=== PATIENT | male | born 1960 ===

== ENCOUNTER 2016-06-25 06:39 | Inpatient (IN) ==
[~2016-06-25 06:39] MED LIST: ASPIRIN 325 MG TABLET PO ONE; DIAZEPAM 5 MG TABLET PO ONE; diphenhydrAMINE CAP 25 MG CAPSULE PO ONE
--- NOTE | 2016-06-25 07:33 | History and Physical Update ---
Sedation H&P Update - History and Physical H&P was reviewed, the patient examined and there: are no changes in the patients condition since last H&P was completed. - Dictation Physical: refer to H&P completed by admitting physician - Physical Exam Mental Status: alert and oriented Heart: regular rate and rhythm Lung: clear to auscultation Abdomen: within normal limits Vitals: within normal limits - Sedation Plan for Sedation: moderate Patient Consent: Procedure disscussed with patient and patinet has consented., Risks and benefits were discussed with patient,including infection,, bleeding, injury to surrounding structures, seizure, temporary nerve, Patient understands and accepts potential risks/benefits and agrees to, proceed. ASA Class: III Airway Assessment: Class II: Soft palate, uvula, fauces visible
--- NOTE | 2016-06-25 07:35 | EKG Report ---
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
--- NOTE | 2016-06-25 07:50 | XRay Report ---
Portable chest Date: 06/25/2016 Clinical history: Chest pain Comparison: None Technique: Portable AP sitting chest Findings: The heart is normal in size. Calcified granulomata/nodes. Minimal atelectasis at the left lung base. Probable nipple shadow at the left lung base. Unremarkable mediastinum with degenerative changes. Impression: Old healed granulomatous disease with minimal atelectasis at the left lung base. Probably nipple shadow in the left lower lung zone which could be confirmed with PA film with nipple markers. PROCEDURE INTERPRETED AT [facility] DEPARTMENT OF RADIOLOGY Final Report Signed by: Dr. Adalgisa Isbell
[2016-06-25] MEDS ORDERED: ASPIRIN 325 MG TABLET ONE (07:58)
[2016-06-25] MEDS ORDERED: diphenhydrAMINE CAP 25 MG CAPSULE ONE (07:58)
[2016-06-25] MEDS ORDERED: NITROGLYCERIN DRIP 50 MG/250 ML BOTTLE IV ONE (08:03)
[2016-06-25] MEDS ORDERED: VERAPAMIL 5 MG/2 ML VIAL ONE (08:03)
[2016-06-25] MEDS ORDERED: HEPARIN/NACL 0.9% 2 UNITS/ML 1,000 ML IV ONE (08:03)
[2016-06-25] MEDS ORDERED: LIDOCAINE 1% 20 ML VIAL ONE (08:03)
[2016-06-25] MEDS: SODIUM CHLORIDE 0.45% 1,000 ML IV SCH ×2 (08:03→18:28)
--- NOTE | 2016-06-25 08:08 | Cardiology History & Physical ---
Assessment and Plan - Time spent with patient Time spent with patient: Less than 30 minutes (1) Unstable angina Status: Acute Current Visit: Yes (2) Hypertension Status: Chronic Current Visit: Yes Qualifiers: Hypertension type: essential hypertension Qualified Code(s): I10 - Essential (primary) hypertension (3) Diabetes Status: Chronic Current Visit: Yes Qualifiers: Diabetes mellitus type: type 2 Diabetes mellitus complication status: without complication (4) Abnormal cardiovascular stress test Status: Acute Current Visit: Yes (5) Dyslipidemia Status: Chronic Current Visit: Yes History of Present Illness Chief complaint: Chest discomfort History of present illness: Mr. Peraza is a 56 year old male hypertensive diabetic who has experienced chest discomfort that he is felt to be has gallstones. He has a history of cholelithiasis and has had chest discomfort in the epigastrium that appears to be related to exertion and other times at random. He is followed by Dr. Leatha Vargas in the outpatient setting I saw the patient in the clinic with Dr. Vargas earlier this week. I saw and examined the patient that time discussed with him all risk benefits and options of left heart catheterization following a high risk nuclear stress test. He had a Krueger treadmill score of -[address] segment changes chest discomfort and a large inferior reversible defect as interpreted by Dr. Vargas. He also had labs that I have reviewed with a creatinine of 1.4 and a stable CBC. Patient was evaluated in the recovery room this morning before his left heart catheterization. I discussed again with the patient briefly and answered the questions that he and his had. He is agreeable to proceed he has anatomy that appears to be amenable for right radial artery access. I have reviewed his chart. Home Medications Medication Instructions Recorded Confirmed Type Aspirin EC Tab 81 mg PO DAILY 06/25/16 06/25/16 History Carvedilol [Coreg] 6.25 mg PO BID 06/25/16 06/25/16 History Nitroglycerin Sl Tab [Nitrostat] 0.4 mg SL Q5M PRN 06/25/16 06/25/16 History Saxagliptin HCl [Onglyza] 5 mg PO DAILY 06/25/16 06/25/16 History Ursodiol [Actigall] 300 mg PO BID 06/25/16 06/25/16 History metFORMIN [Glucophage] 500 mg PO BID W/MEALS 06/25/16 06/25/16 History Allergies Allergy/AdvReac Type Severity Reaction Status Date / Time No Known Allergies Allergy Verified 06/25/16 07:13 - Constitutional Constitutional: Absent: anorexia - EENT Eyes: Absent: diplopia Nose, mouth and throat: Absent: dysphagia - Cardiovascular Cardiovascular: Present: chest pain at rest, chest pain with activity, dyspnea - Respiratory Respiratory: Present: dyspnea, dyspnea on exertion - Gastrointestinal Gastrointestinal: Present: other (Epigastric discomfort) - Genitourinary Genitourinary: Absent: difficulty urinating - Musculoskeletal Musculoskeletal: Absent: arthralgias - Neurological Neurological: Absent: abnormal gait - Psychiatric Psychiatric: Absent: anxiety, depression - Endocrine Endocrine: Absent: cold intolerance, heat intolerance - Hematologic/Lymphatic Hematologic/Lymphatic: Absent: easy bleeding, easy bruising Medical,Surgical,& Family Hx - Medical History Cardio: History of: Hypertension Neurology: No history of: Seizures Endocrine: History of: Diabetes Mellitus (NIDDM) Gastrointestinal: History of: GI Problems (Hx lesions in his liver that had been cleared by CT and cholelithiasis) - Surgical History Additional Surgical History: T&A - Social History Smoking Status: Never smoker Frequency of Alcohol Use: None Type of Drug Use: None Marital Status: Lives With:: Spouse Functional capacity: independent 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 (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) Cardiology Physical Exam - Constitutional Vitals: Vital Signs Temp Pulse Resp BP Pulse Ox 97.6 F 66 14 179/84 99 06/25/16 07:22 06/25/16 07:22 06/25/16 07:22 06/25/16 07:22 06/25/16 07:22 Intake and Output 06/24/16 06/25/16 06/25/16 23:59 07:59 15:59 Other: Weight 100.471 kg Patient Weight 06/25/16 23:59 Weight 100.471 kg General appearance: normal weight - Head Head exam: Present: normal inspection - Eye Eye exam: Present: EOMI Pupils: Present: ANNA - ENT ENT exam: Present: normal exam - Neck Neck exam: Present: normal inspection - Respiratory Respiratory exam: Present: clear to auscultation bilaterally - Cardiovascular Cardiovascular exam: Present: regular rate and rhythm (S4) - GI/Abdominal GI/Abdominal exam: Present: normal bowel sounds - Extremities Exam Extremities exam: Present: normal inspection - Back Exam Back exam: Present: normal inspection - Neurological Exam Neurological exam: Present: alert, oriented X3 - Psychiatric Psychiatric exam: Present: normal affect, normal mood - Skin Skin exam: Present: normal color, warm Result/EKG - Labs Labs: Laboratory Results - last 24 hr 06/25/16 07:56 POC Glucose 164 H
[2016-06-25] MEDS ORDERED: fentaNYL 100 MCG/2 ML VIAL ONE (08:20)
[2016-06-25] MEDS ORDERED: MIDAZOLAM 2 MG/2 ML VIAL ONE (08:20)
[2016-06-25] MEDS ORDERED: ENOXAPARIN 60 MG/0.6 ML SYRINGE ONE (08:29)
[2016-06-25] MEDS ORDERED: ONDANSETRON 4 MG/2 ML VIAL IV PRN (08:48)
[2016-06-25] MEDS ORDERED: DEXTROSE 50% 25 GM/50 ML VIAL IV PRN ×2 (08:48→08:53)
[2016-06-25] MEDS ORDERED: GLUCAGON 1 MG VIAL IM PRN ×2 (08:48→08:53)
[2016-06-25] MEDS ORDERED: ZALEPLON 5 MG CAPSULE PO PRN (08:48)
[2016-06-25] MEDS ORDERED: NITROGLYCERIN SL 0.4 MG TABLET SL PRN ×2 (08:48→08:52)
[2016-06-25] MEDS ORDERED: hydrALAZINE 20 MG/1 ML VIAL IV PRN (08:48)
[2016-06-25] MEDS ORDERED: ACETAMINOPHEN 325 MG TABLET PO PRN (08:48)
[2016-06-25] MEDS ORDERED: ASPIRIN EC 81 MG TABLET PO SCH (09:00)
--- NOTE | 2016-06-25 09:04 | Cardiac Catheterization ---
Date of Procedure:: 06/25/16 Pre-op Diagnosis: Progressive or unstable angina with high risk nuclear stress test Post-op diagnosis: other (Severe aorto ostial disease and severe RCA stenosis) Procedure: Procedures: 1. Left heart catheterization resting hemodynamic 2. Selective left and right coronary angiography 3. Left subclavian angiography with visualization of the left internal mammary artery in situ After signed an informed consent was obtained, the patient was prepped and draped in standard fashion for right radial access. Time out was recorded. 0.5 mL of 1% lidocaine were infiltrated in the skin and subcutaneous tissue overlying the right radial artery and Seldinger technique was utilized with a Angiocath to obtain access to the right radial artery. A [place] glide wire was then advanced into the midforearm under fluoroscopic guidance. The Angiocath was removed and a 6 Vietnamese Terumo glide sheath was placed over the Glidewire. The sheath was aspirated and flushed and then 5 mg of verapamil and 200 g of nitroglycerin were given through the sheath. At this time an 035 J-wire was used to guide a [place] 6 Vietnamese catheter into the central aorta across the aortic valve and into the ventricle. Pressure measurements and pullback measurements were obtained. The [place] catheter was then used to engage the left main coronary artery and multiple orthogonal views of the left system were obtained. The catheter then was torqued into the right coronary artery and orthogonal views of the right system were obtained. The catheter was then exchanged over the wire. The sheath was aspirated and flushed. The base draw operator reviewed the films. And a TR band was placed over the glide sheath and used for hemostasis. Total contrast exposure 105 cc of omnipaque Total x-ray exposure: 3.75 min fluoroscopy time and 354 mGy air Kerma Findings: 1. EF not assessed at this time. Transthoracic echo in the computer and recent nuclear stress test with mild decline in EF with stress test but preserved ejection fraction by transthoracic echo consistent with the patient's severe left main and RCA aorto ostial disease 2. Hemodynamics LV: 97/8 EDP:9 Ao:82/31 3. Left main: The vessel demonstrates approximately 30 mmHg damping with engagement and significant change in waveform. It is very difficult to image the vessel due to blowback from the catheter with minimal injection. Vessel is diffusely diseased from the aorta ostium all the way to the bifurcation. 4: Left anterior descending artery: There is ostial involvement with the left main. The proximal portion of the vessel appears to be moderately diffusely diseased. Due to poor flow from the left main it is not very well delineated. 5: Left circumflex artery: This is large but nondominant vessel. There is high- grade ostial stenosis of the vessel at the takeoff of the left main. There is also high-grade ostial stenosis of a large first obtuse marginal that ask almost like a ramus intermedius that is back to the left main with stenosis. There is a 100% occluded ghost filling second obtuse marginal as well. 6: Right coronary artery: This is a dominant vessel. It has very tight aorta ostial disease with high-grade damping engagement and diffuse disease throughout the AV groove portion of this vessel. Assessment: 1. Severe aorto ostial disease left main and diffuse RCA disease with heavy disease in the circumflex distribution and LAD as described above 2. Diabetes mellitus and uncontrolled hypertension with dyslipidemia Plan: 1. Therapeutic lifestyle changes. 2. Referral for cardiothoracic surgery for CABG at this hospitalization Implants: None Anesthesia: moderate conscious sedation Surgeon / Physician: Jessica Lyles Catshovel Driver: none Estimated blood loss: none Specimens: none sent Condition: stable Disposition: floor - Medications / Follow-up
--- NOTE | 2016-06-25 09:10 | EKG Report ---
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
--- NOTE | 2016-06-25 11:43 | Cardiothoracic Progress Note ---
Cardiothoracic Subjective Interval history: Patient is a 56-year-old man who has had symptoms of epigastric and substernal chest discomfort associated with exertion which he attributed to his known cholelithiasis. This is been going on for past 2-3 months. He underwent evaluation including exercise testing which suggested cardiac ischemia. Patient was admitted for cardiac catheterization which was done this morning and shows tight left main coronary stenosis and significant right coronary artery disease. He has been referred for bypass surgery and it is clear that he does need to have this done during this hospitalization. I discussed the surgery with the patient and his and they are in agreement. I think that he does need to remain in the hospital until surgery which will be Wednesday provided that he remained stable. Exam (Progress Note) - Constitutional Vitals: Period Temp Pulse Resp BP Sys/Jackson Pulse Ox Last 24 Hr 97.6 F 66 14 179/84 99 Result/EKG - Labs Labs: Laboratory Results - last 24 hr 06/25/16 07:56 POC Glucose 164 H Quality Measures - VTE Contraindication to Pharmacological VTE Prophylaxis: Already on Theraputic Agent , No Prophylaxis Needed
[2016-06-25] MEDS ORDERED: CARVEDILOL 12.5 MG TABLET PO SCH (17:00)
[2016-06-25] MEDS: URSODIOL 300 MG CAPSULE PO SCH ×2 (17:39→22:20)
[2016-06-25] MEDS: INSULIN REGULAR 100 UNIT/ML SUBCUT SCH ×3 (17:40→22:21)
[2016-06-25] MEDS: LOSARTAN 25 MG TABLET PO SCH (17:40)
[2016-06-25] MEDS: ATORVASTATIN 40 MG TABLET PO SCH (22:21)
[2016-06-26] MEDS: SODIUM CHLORIDE 0.45% 1,000 ML IV SCH (02:30)
[2016-06-26 05:55] LABS: Basophils % 0.9 % (0.0-0.8); Eosinophils # 0.4 10*3/uL (0.0-0.87); Eosinophils % 8.9 % (0.00-10.9); Hematocrit 41.5 VOL% (42.0-52.0); Immature Granulocytes % 0.2 %; Immature Granulocytes Absolute 0.01 #; Lymphocytes % 21.4 % (21.2-54.2); Mean Corpuscular HGB Conc 33.7 GM/DL (32-36); Mean Corpuscular Hemoglobin 28 PG (27-34); Mean Corpuscular Volume 83.8 FL (87-102); Mean Platelet Volume 10.5 FL (9.6-12.0); Monocytes # 0.4 10*3/uL (0.11-0.8); Monocytes % 9.3 % (1.7-12.7); Neutrophils # 2.7 10*3/uL (1.4-7.4); Neutrophils % 59.3 % (38.7-73.9); Platelet Count 166 T/CUMM (130-400); Red Blood Count 4.95 MC/CUMM (3.8-5.5); Red Cell Distribution Width 12.2 % (9.3-17.3); White Blood Count 4.6 T/CUMM (4-12)
[2016-06-26 06:28] LABS: Calcium 8.1 MG/DL (8.5-10.1); Potassium 3.9 MMOL/L (3.5-5.1); Risk Ratio 4.23; VLDL CHOLESTEROL 25.2 MG/DL
[2016-06-26] MEDS ORDERED: GLUCAGON 1 MG VIAL IM PRN (06:44)
[2016-06-26] MEDS ORDERED: DEXTROSE 50% 25 GM/50 ML VIAL IV PRN (06:44)
--- NOTE | 2016-06-26 07:26 | EKG Report ---
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
--- NOTE | 2016-06-26 07:53 | XRay Report ---
XR chest 2V Indication: Coronary artery disease Comparison: 25 June 2016 Findings: The heart and mediastinum are normal in size and configuration. The pulmonary vascularity is normal in caliber. No lung infiltrates, effusions, pneumothorax or other abnormality is demonstrated. Impression: Normal chest x-ray PROCEDURE INTERPRETED AT [facility] DEPARTMENT OF RADIOLOGY Final Report Signed by: Dr. Candido Brooks
[2016-06-26 08:12] LABS: Allen Test Positive; Pt O2 Delivery Device Room Air
[2016-06-26 08:13] LABS: ABG Base Excess -1.2 MMOL/L (-2.5-2.5); ABG HCO3 23.4 MMOL/L (20-26); ABG Oxygen Saturation 97.2 % (95-100); ABG PCO2 37.2 MM HG (35-48); ABG PH 7.402 (7.35-7.45); ABG PO2 94.5 MM HG (80-95); ABG TCO2 19.6 MMOL/L (23-27)
[2016-06-26] MEDS: SODIUM CHLORIDE 0.9% 1,000 ML IV SCH (09:28)
[2016-06-26] MEDS: INSULIN REGULAR 100 UNIT/ML SUBCUT SCH ×4 (09:28→21:20)
[2016-06-26] MEDS: sitaGLIPtin 100 MG TABLET PO SCH (09:29)
[2016-06-26] MEDS: URSODIOL 300 MG CAPSULE PO SCH ×2 (09:29→21:19)
[2016-06-26] MEDS: CARVEDILOL 6.25 MG TABLET PO SCH ×2 (09:29→16:47)
[2016-06-26] MEDS: ASPIRIN EC 81 MG TABLET PO SCH (09:29)
[2016-06-26] MEDS: CHLORHEXIDINE 0.12% ORAL RINSE 60 ML BOTTLE SWISH/SPIT SCH ×2 (09:30→21:21)
[2016-06-26] MEDS: LOSARTAN 25 MG TABLET PO SCH (09:30)
--- NOTE | 2016-06-26 11:44 | Cardiology Progress Note ---
Cardiology - PN: Subj Interval history: Cardiology note 56-year-old man with severe left main and ostial right coronary disease. No pain. Telemetry shows steady sinus rhythm without ectopy. Blood pressure 134/80 in the right arm by me. Right wrist looks good. Good pulse no hematoma. Lab data today Sodium 143 potassium 3.9 chloride 111 CO2 23 BUN 20 creatinine 1.20 glucose 128 Impression Severe left main and ostial right coronary disease Hypertension Type 2 diabetes Hyperlipidemia Obesity Lifetime non-smoker Plan CABG Wednesday Atorvastatin 80 mg daily Coreg 6.25 mg twice daily Cozaar 25 mg daily Sublingual nitro as needed Isordil 30 mg daily Exam (Progress Note) - Constitutional Vitals: Period Temp Pulse Resp BP Sys/Jackson Pulse Ox Last 24 Hr 96.7 F-98.6 F 67-75 18-20 126-144/73-89 94-98 Result/EKG - Labs CBC & BMP: 06/26/16 05:01 06/26/16 05:01 Labs: Laboratory Results - last 24 hr 06/25/16 06/25/16 06/26/16 16:31 21:54 05:01 WBC 4.6 RBC 4.95 Hgb 14.0 Hct 41.5 L MCV 83.8 L MCH 28 MCHC 33.7 RDW 12.2 Plt Count 166 MPV 10.5 Neut % (Auto) 59.3 Lymph % (Auto) 21.4 [place] % (Auto) 9.3 Eos % (Auto) 8.9 Baso % (Auto) 0.9 H Neut # (Auto) 2.7 Lymph # (Auto) 1.0 L [place] # (Auto) 0.4 Eos # (Auto) 0.4 Baso # (Auto) 0.0 Immature Gran % 0.2 Nucleated RBC % 0.0 Immature Gran # 0.01 Nucleated RBCs # 0.00 ABG pH ABG pCO2 ABG pO2 ABG HCO3 ABG Total CO2 ABG O2 Saturation ABG Base Excess FiO2 Sodium Potassium Chloride Carbon Dioxide Anion Gap BUN Creatinine GFR Calculation BUN/Creatinine Ratio Glucose POC Glucose 169 H 161 H Calculated Osmolality Calcium Triglycerides Cholesterol LDL Cholesterol VLDL Cholesterol HDL Cholesterol Heart Disease Risk Ratio 06/26/16 06/26/16 06/26/16 05:01 08:11 08:24 WBC RBC Hgb Hct MCV MCH MCHC RDW Plt Count MPV Neut % (Auto) Lymph % (Auto) [place] % (Auto) Eos % (Auto) Baso % (Auto) Neut # (Auto) Lymph # (Auto) [place] # (Auto) Eos # (Auto) Baso # (Auto) Immature Gran % Nucleated RBC % Immature Gran # Nucleated RBCs # ABG pH 7.402 ABG pCO2 37.2 ABG pO2 94.5 ABG HCO3 23.4 ABG Total CO2 19.6 L ABG O2 Saturation 97.2 ABG Base Excess -1.2 FiO2 21.00 Sodium 143 Potassium 3.9 Chloride 111 H Carbon Dioxide 23 Anion Gap 12.9 BUN 20 H Creatinine 1.20 GFR Calculation 85 BUN/Creatinine Ratio 16.00 Glucose 128 H POC Glucose 153 H Calculated Osmolality 289.0 Calcium 8.1 L Triglycerides 126 Cholesterol 186 LDL Cholesterol 131.0 VLDL Cholesterol 25.2 HDL Cholesterol 44 Heart Disease Risk Ratio 4.23 Quality Measures - VTE Contraindication to Pharmacological VTE Prophylaxis: Already on Theraputic Agent , No Prophylaxis Needed
[2016-06-26] MEDS: ENOXAPARIN 100 MG/ML SYRINGE SUBCUT SCH (12:05)
[2016-06-26] MEDS: ISOSORBIDE DINITRATE 20 MG TABLET PO SCH ×2 (12:05→21:19)
[2016-06-26] MEDS: ATORVASTATIN 40 MG TABLET PO SCH (21:19)
[2016-06-27] MEDS: ENOXAPARIN 100 MG/ML SYRINGE SUBCUT SCH ×2 (01:33→12:03)
[2016-06-27] MEDS: SODIUM CHLORIDE 0.9% 1,000 ML IV SCH (07:12)
[2016-06-27] MEDS: URSODIOL 300 MG CAPSULE PO SCH ×2 (08:29→22:23)
[2016-06-27] MEDS: LOSARTAN 25 MG TABLET PO SCH (08:29)
[2016-06-27] MEDS: ISOSORBIDE DINITRATE 20 MG TABLET PO SCH ×2 (08:29→22:23)
[2016-06-27] MEDS: ASPIRIN EC 81 MG TABLET PO SCH (08:30)
[2016-06-27] MEDS: CHLORHEXIDINE 0.12% ORAL RINSE 60 ML BOTTLE SWISH/SPIT SCH ×2 (08:30→22:25)
[2016-06-27] MEDS: sitaGLIPtin 100 MG TABLET PO SCH (08:30)
[2016-06-27] MEDS: CARVEDILOL 6.25 MG TABLET PO SCH ×2 (08:31→16:47)
[2016-06-27] MEDS: INSULIN REGULAR 100 UNIT/ML SUBCUT SCH ×4 (08:36→22:38)
--- NOTE | 2016-06-27 08:50 | Cardiology Progress Note ---
Cardiology - PN: Subj Interval history: Cardiology note 56-year-old man with left main disease and ostial right No chest pain. Telemetry has demonstrated steady sinus rhythm without ectopy Blood pressure 134/80 in the right arm by me Regular rhythm no murmur or gallop Clear lungs Abdomen benign Fasting blood sugar today 125 Impression Severe left main/ostial right disease Hypertension Diabetes Hypercholesterolemia Obesity Lifetime non-smoker Plan CABG Wednesday Coreg 6.25 mg twice daily Cozaar 25 mg daily Atorvastatin 80 mg daily Isordil 20 mg twice daily Lovenox twice daily Exam (Progress Note) - Constitutional Vitals: Period Temp Pulse Resp BP Sys/Jackson Pulse Ox Last 24 Hr 97.2 F-99.0 F 53-84 14-20 110-148/59-80 95-99 Result/EKG - Labs CBC & BMP: 06/26/16 05:01 06/26/16 05:01 Labs: Laboratory Results - last 24 hr 06/26/16 06/26/16 06/26/16 11:16 15:18 20:16 POC Glucose 135 H 135 H 154 H 06/27/16 07:18 POC Glucose 125 H Quality Measures - VTE Contraindication to Pharmacological VTE Prophylaxis: Already on Theraputic Agent , No Prophylaxis Needed
--- NOTE | 2016-06-27 09:31 | Cardiothoracic Progress Note ---
Cardiothoracic Subjective Interval history: Patient is pain-free and ready for surgery on Wednesday. Exam (Progress Note) - Constitutional Vitals: Period Temp Pulse Resp BP Sys/Jackson Pulse Ox Last 24 Hr 97.2 F-99.0 F 53-84 14-20 110-148/59-80 95-99 Result/EKG - Labs CBC & BMP: 06/26/16 05:01 06/26/16 05:01 Labs: Laboratory Results - last 24 hr 06/26/16 06/26/16 06/26/16 11:16 15:18 20:16 POC Glucose 135 H 135 H 154 H 06/27/16 07:18 POC Glucose 125 H Quality Measures - VTE Contraindication to Pharmacological VTE Prophylaxis: Already on Theraputic Agent , No Prophylaxis Needed
[2016-06-27] MEDS: ATORVASTATIN 40 MG TABLET PO SCH (22:24)
[2016-06-28] MEDS: ENOXAPARIN 100 MG/ML SYRINGE SUBCUT SCH ×2 (00:53→11:57)
[2016-06-28] MEDS ORDERED: CEFUROXIME INJ 1,500 MG in SODIUM CHLORIDE 0.9% 100 ML IV ONE (06:44)
--- NOTE | 2016-06-28 08:11 | Cardiothoracic Progress Note ---
Cardiothoracic Subjective Interval history: Ready for surgery in the morning. Exam (Progress Note) - Constitutional Vitals: Period Temp Pulse Resp BP Sys/Jackson Pulse Ox Last 24 Hr 97.2 F-98.2 F 62-70 16-20 122-150/76-83 97-98 Result/EKG - Labs CBC & BMP: 06/26/16 05:01 06/26/16 05:01 Labs: Laboratory Results - last 24 hr 06/27/16 06/27/16 06/27/16 07:18 11:11 15:38 POC Glucose 125 H 123 H 109 H Blood Type Antibody Screen Crossmatch 06/27/16 06/28/16 06/28/16 22:37 06:50 07:43 POC Glucose 158 H 132 H Blood Type O POSITIVE Antibody Screen Negative Crossmatch See Detail 06/28/16 Unknown POC Glucose Blood Type O POSITIVE Antibody Screen Crossmatch Quality Measures - VTE Contraindication to Pharmacological VTE Prophylaxis: Already on Theraputic Agent , No Prophylaxis Needed
[2016-06-28] MEDS: INSULIN REGULAR 100 UNIT/ML SUBCUT SCH ×4 (08:12→20:41)
--- NOTE | 2016-06-28 08:34 | Cardiology Progress Note ---
Cardiology - PN: Subj Interval history: Cardiology note 56-year-old man with left main disease and ostial right disease. No pain. Telemetry has been benign. O2 sat 97 on room air Fasting blood sugar today 132 Blood pressure 134/76 in the right arm by me Regular rhythm no gallop Clear chest Abdomen benign No leg edema Impression Left main and ostial RCA disease Hypertension Diabetes Hypercholesterolemia Obesity Lifetime non-smoker Plan Coreg 6.25 mg twice daily Cozaar 25 mg daily Atorvastatin 80 mg daily Isordil 20 mg twice daily Stop Lovenox after tonight's dose CABG tomorrow Exam (Progress Note) - Constitutional Vitals: Period Temp Pulse Resp BP Sys/Jackson Pulse Ox Last 24 Hr 97 F-98.2 F 62-70 16-20 122-150/73-83 96-98 Result/EKG - Labs CBC & BMP: 06/26/16 05:01 06/26/16 05:01 Labs: Laboratory Results - last 24 hr 06/27/16 06/27/16 06/27/16 11:11 15:38 22:37 POC Glucose 123 H 109 H 158 H Blood Type Antibody Screen Crossmatch 06/28/16 06/28/16 06/28/16 06:50 07:43 Unknown POC Glucose 132 H Blood Type O POSITIVE O POSITIVE Antibody Screen Negative Crossmatch See Detail Quality Measures - VTE Contraindication to Pharmacological VTE Prophylaxis: Already on Theraputic Agent , No Prophylaxis Needed
[2016-06-28] MEDS: CARVEDILOL 6.25 MG TABLET PO SCH ×2 (09:00→16:53)
[2016-06-28] MEDS: URSODIOL 300 MG CAPSULE PO SCH ×2 (09:00→20:41)
[2016-06-28] MEDS: ISOSORBIDE DINITRATE 20 MG TABLET PO SCH ×2 (09:00→20:41)
[2016-06-28] MEDS: ASPIRIN EC 81 MG TABLET PO SCH (09:00)
[2016-06-28] MEDS: LOSARTAN 25 MG TABLET PO SCH (09:00)
[2016-06-28] MEDS: sitaGLIPtin 100 MG TABLET PO SCH (09:01)
[2016-06-28] MEDS: CHLORHEXIDINE 0.12% ORAL RINSE 60 ML BOTTLE SWISH/SPIT SCH ×2 (09:01→20:42)
[2016-06-28] MEDS: SODIUM CHLORIDE 0.9% 1,000 ML IV SCH (14:13)
[2016-06-28] MEDS: CHLORHEXIDINE 4% SOLN 118 ML BOTTLE TOP SCH ×3 (16:51→20:44)
[2016-06-28] MEDS: ATORVASTATIN 40 MG TABLET PO SCH (20:41)
[2016-06-29] MEDS ORDERED: PAPAVERINE 60 MG/2 ML VIAL ONE ×2 (04:39→08:34)
[2016-06-29] MEDS ORDERED: VANCOMYCIN 1,000 MG VIAL ONE (04:39)
[2016-06-29] MEDS ORDERED: PANTOPRAZOLE 40 MG TABLET PO STA (05:48)
[2016-06-29] MEDS ORDERED: LORazepam 1 MG TABLET PO ONE (05:49)
[2016-06-29] MEDS ORDERED: CEFUROXIME INJ 1,500 MG in SODIUM CHLORIDE 0.9% 100 ML IV ONE (06:00)
[2016-06-29] MEDS ORDERED: SODIUM CHLORIDE 0.9% 1,000 ML IV SCH (06:00)
[2016-06-29] MEDS ORDERED: CALCIUM CHLORIDE 1,000 MG/10 ML SYRINGE IV ONE ×3 (06:45→13:05)
[2016-06-29] MEDS ORDERED: ROCURONIUM 100 MG/10 ML VIAL IV ONE (06:45)
[2016-06-29] MEDS ORDERED: MINERAL OIL/PETROLATUM OPH OINT 3.5 GM TUBE ONE (06:45)
[2016-06-29] MEDS ORDERED: AMINOCAPROIC ACID 5,000 MG/20 ML VIAL IV ONE (06:45)
[2016-06-29] MEDS ORDERED: LIDOCAINE 2% 5 ML VIAL ONE (06:45)
[2016-06-29] MEDS ORDERED: PHENYLEPHRINE 20 MG/250 ML PREMIX IV ONE (06:45)
[2016-06-29] MEDS ORDERED: NITROGLYCERIN 50 MG/250 ML BOTTLE IV ONE (06:45)
[2016-06-29] MEDS ORDERED: PHENYLEPHRINE 1 MG/10 ML SYRINGE IV ONE (06:45)
[2016-06-29] MEDS ORDERED: NITROPRUSSIDE 50 MG/2 ML VIAL ONE (07:14)
[2016-06-29] MEDS ORDERED: PHENYLEPHRINE DRIP 40 MG/250 ML PREMIX IV ONE (07:15)
[2016-06-29] MEDS ORDERED: POTASSIUM CHLORIDE RIDER 100 ML IV ONE (07:16)
[2016-06-29] MEDS ORDERED: ALBUMIN 5% 12.5 GM/250 ML VIAL IV ONE (07:16)
[2016-06-29 07:34] LABS: ABG Base Excess -2.5 MMOL/L (-2.5-2.5); ABG HCO3 22.3 MMOL/L (20-26); ABG Oxygen Saturation 99.9 % (95-100); ABG PCO2 36.4 MM HG (35-48); ABG PH 7.388 (7.35-7.45); ABG TCO2 19.2 MMOL/L (23-27); Glucose Heart Surgery 139 MG/DL (74-106); Hematocrit Heart Surgery 39.1 PERCENT (42-52); Hemoglobin Heart Surgery 12.7 G/DL (14.0-18.0); Ionized Calcium Arterial 1.13 MMOL/L (1.21-1.46); PCO2 Patient Temp Arterial 36.4 MMHG; PH Patient Temp Arterial 7.388; Patient Temperature 37 CELCIUS; Potassium Heart/CVR 3.4 MMOL/L (3.5-5.1); Sodium Heart/CVR 140 MMOL/L (135-145)
[2016-06-29 07:49] LABS: Apearance,Urine CLEAR (Clear); Bilirubin,Urine Negative (Negative); Blood, Urine Negative (Negative); Glucose,Urine (UA) Negative (Negative); Ketones,Urine Negative (Negative); Nitrite,Urine Negative (Negative); Protein,Urine Negative; RBC,Urine <1 /HPF (0-4); Urine Color Yellow (Yellow); Urine Specific Gravity 1.013 (1.001-1.035); Urine Urobilinogen < 2.0 EU/DL (0.2-1.0); WBC,Urine 1 /HPF (0-6)
[2016-06-29] MEDS ORDERED: TISSUE ADHESIVE 1 EACH APPLICATOR TOP ONE ×2 (08:08→08:40)
[2016-06-29] MEDS ORDERED: HEPARIN 5,000 UNIT/1 ML VIAL ONE (08:34)
[2016-06-29 09:15] LABS: Hemoglobin Heart Surgery 9.4 G/DL (14.0-18.0); PCO2 Patient Temp Venous 36.6 MM HG; PH Patient Temp Venous 7.407; PO2 Patient Temp Venous 34.2 MM HG; Potassium Heart/CVR 5.3 MMOL/L (3.5-5.1); VBG Base Excess -1.2 MEQ/L (0-4); VBG HCO3 23.1 MEQ/L (24-28); VBG Oxygen Saturation 77.1 %; VBG PCO2 42.3 MMHG (41-51); VBG PH 7.364; VBG PO2 42.1 MMHG (17-40)
[2016-06-29 09:44] LABS: Hematocrit Heart Surgery 32.6 PERCENT (42-52); Hemoglobin Heart Surgery 10.5 G/DL (14.0-18.0); PCO2 Patient Temp Venous 33.8 MM HG; PH Patient Temp Venous 7.425; PO2 Patient Temp Venous 31.5 MM HG; Potassium Heart/CVR 5.5 MMOL/L (3.5-5.1); VBG Base Excess -1.6 MEQ/L (0-4); VBG HCO3 22.7 MEQ/L (24-28); VBG Oxygen Saturation 78.9 %; VBG PH 7.354; VBG PO2 44.6 MMHG (17-40)
[2016-06-29 10:17] LABS: Hematocrit Heart Surgery 32.3 PERCENT (42-52); Hemoglobin Heart Surgery 10.5 G/DL (14.0-18.0); PH Patient Temp Venous 7.353; PO2 Patient Temp Venous 35.8 MM HG; VBG Base Excess -2.6 MEQ/L (0-4); VBG HCO3 21.8 MEQ/L (24-28); VBG Oxygen Saturation 69.7 %; VBG PH 7.339; VBG PO2 38.4 MMHG (17-40)
[2016-06-29 10:19] LABS: Potassium Heart/CVR 6.1 MMOL/L (3.5-5.1)
[2016-06-29 10:49] LABS: ABG Base Excess -3.7 MMOL/L (-2.5-2.5); ABG HCO3 21.4 MMOL/L (20-26); ABG Oxygen Saturation 99.2 % (95-100); ABG PCO2 38.1 MM HG (35-48); ABG PH 7.357 (7.35-7.45); ABG TCO2 19.1 MMOL/L (23-27); Glucose Heart Surgery 264 MG/DL (74-106); Hematocrit Heart Surgery 35.5 PERCENT (42-52); Hemoglobin Heart Surgery 11.5 G/DL (14.0-18.0); Ionized Calcium Arterial 1.24 MMOL/L (1.21-1.46); PCO2 Patient Temp Arterial 38.1 MMHG; PH Patient Temp Arterial 7.357; Patient Temperature 37 CELCIUS; Sodium Heart/CVR 135 MMOL/L (135-145)
[2016-06-29] MEDS ORDERED: THROMBIN TOPICAL (RECOMBINANT) 5,000 UNIT VIAL TOP ONE (10:51)
[2016-06-29] MEDS ORDERED: PHENYLEPHRINE DRIP 40 MG/250 ML PREMIX IV PRN (11:33)
[2016-06-29] MEDS ORDERED: MAGNESIUM SULF RIDER 4 GM in PREMIX 1 EACH IV PRN (11:33)
[2016-06-29] MEDS ORDERED: ONDANSETRON 4 MG/2 ML VIAL IV PRN (11:33)
[2016-06-29] MEDS ORDERED: MAGNESIUM SULF RIDER 2 GM in PREMIX 1 EACH IV PRN (11:33)
[2016-06-29] MEDS ORDERED: LACTATED RINGERS 250 ML IV PRN (11:33)
[2016-06-29] MEDS ORDERED: POTASSIUM CHLORIDE RIDER 10 MEQ in PREMIX 1 EACH IV PRN (11:33)
[2016-06-29] MEDS ORDERED: INSULIN REGULAR 100 UNIT/ML IV ONE (11:33)
[2016-06-29] MEDS ORDERED: MIDAZOLAM 10 MG/2 ML VIAL IV PRN (11:33)
[2016-06-29] MEDS ORDERED: CALCIUM CHLORIDE 1,000 MG/10 ML SYRINGE IV PRN (11:33)
[2016-06-29] MEDS ORDERED: MIDAZOLAM 2 MG/2 ML VIAL IV PRN (11:33)
[2016-06-29] MEDS ORDERED: ACETAMINOPHEN 650 MG SUPP RECTAL PRN (11:33)
[2016-06-29] MEDS ORDERED: MORPHINE 10 MG/1 ML VIAL IV PRN (11:33)
[2016-06-29] MEDS ORDERED: INSULIN REGULAR 100 UNIT/ML IV PRN (11:33)
[2016-06-29] MEDS ORDERED: NITROPRUSSIDE 100 MG in DEXTROSE 5% 250 ML IV PRN (11:33)
[2016-06-29] MEDS ORDERED: DEXTROSE 50% 25 GM/50 ML VIAL IV PRN ×2 (11:33)
[2016-06-29] MEDS ORDERED: VECURONIUM 10 MG VIAL IV PRN ×2 (11:33)
[2016-06-29] MEDS: SODIUM CHLORIDE 0.45% 1,000 ML IV SCH ×2 (11:35)
[2016-06-29] MEDS ORDERED: DEXTROSE 5% KCL 20 MEQ 20 MEQ/1,000 ML BAG IV ONE (11:37)
[2016-06-29] MEDS ORDERED: PHENYLEPHRINE DRIP 20 MG/250 ML PREMIX IV ONE (11:37)
[2016-06-29] MEDS ORDERED: HEPARIN 10,000 UNIT/10 ML VIAL ONE (11:38)
[2016-06-29] MEDS ORDERED: ALBUMIN 25% 25 GM/100 ML VIAL IV ONE (11:38)
[2016-06-29] MEDS ORDERED: methylPREDNISolone SOD SUC 1,000 MG/8 ML VIAL ONE (11:38)
[2016-06-29] MEDS ORDERED: PROTAMINE SULFATE 250 MG/25 ML VIAL IV ONE (11:38)
[2016-06-29] MEDS ORDERED: MAGNESIUM SULFATE 1 GM/2 ML VIAL ONE (11:38)
[2016-06-29] MEDS ORDERED: MANNITOL 12.5 GM/50 ML VIAL IV ONE (11:38)
[2016-06-29] MEDS ORDERED: FUROSEMIDE 20 MG/2 ML VIAL ONE (11:38)
[2016-06-29] MEDS ORDERED: SODIUM BICARBONATE 50 MEQ/50 ML SYRINGE IV ONE (11:38)
[2016-06-29] MEDS ORDERED: PROTAMINE SULFATE 50 MG/5 ML VIAL IV ONE ×3 (11:38→11:50)
--- NOTE | 2016-06-29 11:41 | Operative Note ---
Date of procedure: 06/29/16 Pre-op diagnosis: Coronary artery disease Post-op diagnosis: same Procedure: Procedure: Coronary bypass grafting 3 with left internal mammary graft to the anterior descending coronary artery and saphenous vein graft to the right posterior descending and ramus intermedius coronary artery. Findings: Patient is a 56-year-old man with known coronary artery disease by cardiac catheterization who was found to have left main coronary disease and high-grade occlusion in the right coronary artery. At the time of surgery left ventricular function was noted to be normal and there were satisfactory distal vessels in the posterior descending ramus intermedius and anterior descending coronary arteries. Left internal mammary graft was placed to the anterior coronary artery and saphenous vein grafts were placed to the ramus intermedius and right posterior descending coronary arteries. Patient tolerated procedure well and was returned to recovery in satisfactory condition. Procedure: Patient brought to the operating room placed in the operating table in supine position. After satisfactory induction of general anesthesia the chest abdomen and legs were prepped and draped in sterile fashion. Greater saphenous vein was harvested from both lower legs and prepared is an arterial graft. Incisions in the legs were closed with 3-0 subcutaneous Monocryl and 3- 0 subcuticular Monocryl. Standard sternotomy incision was made and the sternum was divided and the heart suspended in a pericardial cradle. Left internal mammary artery was dissected free and prepared is an arterial graft. Heart was prepared for cardiopulmonary bypass with systemic heparinization cannulation of the ascending aorta and right treatment. Cardiopulmonary bypass was begun and aorta was crossclamped and the heart arrested with cardioplegia solution injected into the aortic root. Heart was protected during the period of crossclamping with topical saline slush. Distal anastomoses were constructed as noted above and all distal vessels were of adequate size and free of disease at the site of anastomosis. Following completion of the distal anastomosis to the aorta was unclamped and cardiac action reestablished. Proximal anastomoses were constructed between the influenza of the saphenous vein grafts in the ascending aorta. Patient was then weaned from cardiopulmonary bypass without difficulty and heparin effect reversed with protamine. Decannulation was carried out in a defects in the ascending aorta and right atrium closed with 3- 0 Prolene. Operative field was inspected for hemostasis and this was considered adequate the incision was closed with interrupted stainless steel wire and the sternum 0 Monopril in the presternal fascia and 3-0 subcuticular Monocryl. The chest tubes were left in the anterior mediastinum and one in the left hemithorax these were brought out through separate stab incisions. Sterile dressings were applied and patient was returned to recovery in satisfactory condition. Anesthesia: DAVID Surgeon / Physician: Keith Horton Estimated blood loss: other (Unable to determine because of cardiopulmonary bypass) Condition: stable Disposition: ICU Results - Labs CBC & BMP: 06/29/16 10:41 06/26/16 05:01 Discharge Plan - Discharge Medications No Action Nitroglycerin Sl Tab [Nitrostat] 0.4 mg SL Q5M PRN PRN Reason: Chest Pain Ursodiol [Actigall] 300 mg PO BID Saxagliptin HCl [Onglyza] 5 mg PO DAILY metFORMIN [Glucophage] 500 mg PO BID W/MEALS Aspirin EC Tab 81 mg PO DAILY Carvedilol [Coreg] 6.25 mg PO BID - Follow Up or Referral - Forms/Instructions
[2016-06-29] MEDS: LACTATED RINGERS 1,000 ML IV PRN ×4 (12:00→15:00)
[2016-06-29 12:05] LABS: ABG Base Excess -2.8 MMOL/L (-2.5-2.5); ABG HCO3 22.3 MMOL/L (20-26); ABG Oxygen Saturation 97.8 % (95-100); ABG PCO2 39.7 MM HG (35-48); ABG PH 7.367 (7.35-7.45); ABG PO2 126.8 MM HG (80-95); ABG TCO2 23.5 MMOL/L (23-27); Glucose Heart Surgery 220 MG/DL (74-106); Hemoglobin Heart Surgery 12.5 G/DL (14.0-18.0); Potassium Heart/CVR 3.5 MMOL/L (3.5-5.1)
[2016-06-29 12:13] LABS: Basophils % 0.3 % (0.0-0.8); Eosinophils # 0.2 10*3/uL (0.0-0.87); Eosinophils % 2.2 % (0.00-10.9); Hematocrit 35.8 VOL% (42.0-52.0); Immature Granulocytes % 0.7 %; Immature Granulocytes Absolute 0.05 #; Lymphocytes # 0.7 10*3/uL (1.4-4.0); Lymphocytes % 9.3 % (21.2-54.2); Mean Corpuscular Hemoglobin 28 PG (27-34); Mean Platelet Volume 10.5 FL (9.6-12.0); Monocytes # 0.3 10*3/uL (0.11-0.8); Monocytes % 4.5 % (1.7-12.7); Neutrophils # 6.3 10*3/uL (1.4-7.4); Red Blood Count 4.26 MC/CUMM (3.8-5.5); Red Cell Distribution Width 12.4 % (9.3-17.3)
[2016-06-29 12:18] LABS: Hemoglobin 11.8 GM/DL (14.0-18.0); Platelet Count 143 T/CUMM (130-400); White Blood Count 7.6 T/CUMM (4-12)
[2016-06-29] MEDS: POTASSIUM CHLORIDE RIDER 20 MEQ in PREMIX 1 EACH IV PRN ×4 (12:24→20:15)
[2016-06-29 12:36] LABS: Albumin 3.5 G/DL (3.4-5.0); Bilirubin,Total 1.2 MG/DL (0.2-1.0); Calcium 8.2 MG/DL (8.5-10.1); Magnesium 2.2 MG/DL (1.8-2.4); Osmolality,Calculated 289.1 MOS/KG (273-304); Potassium 3.7 MMOL/L (3.5-5.1); Total Protein 5.5 G/DL (6.4-8.3)
[2016-06-29 12:48] LABS: CKMB % 8.2 %
[2016-06-29] MEDS: ALBUMIN 5% 12.5 GM in PREMIX 1 EACH IV PRN ×3 (12:52→13:45)
[2016-06-29 12:53] LABS: Troponin I Only 2.3 NG/ML (0.00-0.045)
[2016-06-29] MEDS ORDERED: SUFentanil 250 MCG/5 ML AMP ONE ×2 (13:05)
[2016-06-29] MEDS ORDERED: MIDAZOLAM 10 MG/2 ML VIAL ONE (13:05)
[2016-06-29] MEDS ORDERED: ePHEDrine 50 MG/ML AMP ONE (13:06)
--- NOTE | 2016-06-29 13:10 | XRay Report ---
XR chest 1V portable Indication: Catheter placement Comparison: 26 June 2016 Findings: The heart and mediastinum are within normal limits post cardiac surgery. Support structures appear within normal limits for positioning. The pulmonary vascularity is normal in caliber. Linear increased left midlung density is present. No other lung infiltrates, effusions, pneumothorax or other abnormality is demonstrated. Impression: Interval cardiac surgery with linear density in the left midlung, likely atelectasis. PROCEDURE INTERPRETED AT [facility] DEPARTMENT OF RADIOLOGY Final Report Signed by: Dr. Candido Brooks
[2016-06-29] MEDS: INSULIN REGULAR 100 UNIT/ML SUBCUT SCH ×2 (13:13→13:38)
[2016-06-29] MEDS: ASPIRIN EC 81 MG TABLET PO SCH (13:41)
[2016-06-29] MEDS: sitaGLIPtin 100 MG TABLET PO SCH (13:41)
[2016-06-29] MEDS: LOSARTAN 25 MG TABLET PO SCH (13:41)
[2016-06-29] MEDS: URSODIOL 300 MG CAPSULE PO SCH (13:41)
[2016-06-29] MEDS: ISOSORBIDE DINITRATE 20 MG TABLET PO SCH (13:41)
[2016-06-29] MEDS: CHLORHEXIDINE 0.12% ORAL RINSE 60 ML BOTTLE SWISH/SPIT SCH ×2 (13:41→20:17)
[2016-06-29] MEDS: CARVEDILOL 6.25 MG TABLET PO SCH (13:42)
[2016-06-29] MEDS: KETOROLAC 30 MG/1 ML VIAL IV SCH ×2 (13:53→17:51)
[2016-06-29 14:16] LABS: INR 1.2; PT Patient Result 12.7 SECS; Partial Thromboplastin Time 29.4 SECS (0-40)
[2016-06-29 14:21] LABS: ABG Base Excess -1.1 MMOL/L (-2.5-2.5); ABG HCO3 23.9 MMOL/L (20-26); ABG Oxygen Saturation 97.3 % (95-100); ABG PCO2 41.3 MM HG (35-48); ABG PH 7.381 (7.35-7.45); ABG PO2 116.4 MM HG (80-95); ABG TCO2 25.2 MMOL/L (23-27); Glucose Heart Surgery 212 MG/DL (74-106); Hemoglobin Heart Surgery 10.6 G/DL (14.0-18.0); Potassium Heart/CVR 4.6 MMOL/L (3.5-5.1)
[2016-06-29] MEDS: INSULIN REGULAR DRIP 100 ML IV SCH (14:42)
--- NOTE | 2016-06-29 16:32 | Cardiology Progress Note ---
<Sarah Munoz E - Last Filed: 06/29/16 16:22> Assessment and Plan - Time spent with patient Time spent with patient: Greater than 30 minutes (1) Dyslipidemia Status: Chronic Assessment and plan: See plan of care listed below Current Visit: Yes (2) Unstable angina Status: Resolved Assessment and plan: See plan of care listed below Current Visit: Yes (3) Hypertension Status: Chronic Assessment and plan: See plan of care listed below Current Visit: Yes Qualifiers: Hypertension type: essential hypertension Qualified Code(s): I10 - Essential (primary) hypertension (4) Diabetes Status: Chronic Assessment and plan: See plan of care listed below Current Visit: Yes Qualifiers: Diabetes mellitus type: type 2 Diabetes mellitus complication status: without complication (5) Dyslipidemia Status: Chronic Assessment and plan: See plan of care listed below Current Visit: Yes (6) CAD (coronary artery disease) Status: Chronic Assessment and plan: See plan of care listed below Current Visit: Yes (7) S/P CABG x 3 Status: Chronic Assessment and plan: See plan of care listed below Current Visit: Yes Cardiology - PN: Subj Interval history: HYBRID POWERTRAIN 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 ISABEL RENEE PCP: [facility] Patient is being seen in the cardiovascular recovery unit in the ICU. SUMMARY: Patient was admitted June 25, 2016 for elective cardiac catheterization. He was found to have severe triple-vessel coronary artery disease. (See report). Due to the severity of his disease, he was kept hospitalized over the weekend and underwent elective CABG today. (LARA to LAD, SVG to right PDA, SVG to ramus.) He tolerated the procedure well. He is currently in the recovery unit being maintained on low-dose Naeem-Synephrine. Patient had an echocardiogram performed at [facility] in the past month per records. Unfortunately, I do not have a copy of the echocardiogram report. I will request this report from [facility] for our records. Is not in the [facility]MS system. ASSESSMENT/PLAN: 1. CAD -now status post revascularization 2. CABG (S/P LARA-LAD, SVG-RIGHT PDA, SVG-RAMUS) -being maintained on low- dose pressors. Continue current plan 3. HYPERTENSION -underlying hypertension. Will adjust medications during hospital stay is able 4. DYSLIPIDEMIA -continue lipid-lowering agent when patient is able to take medications by tube 5. DIABETES -continue current plan of care Exam (Progress Note) - Constitutional Vitals: Period Temp Pulse Resp BP Sys/Jackson Pulse Ox Last 24 Hr 97 F-97.6 F 65-91 10-18 76-160/37-80 96-100 Exam: General: [Intubated and sedated.] HEENT: [normocephalic, atraumatic. Mucous membranes moist. No jaundice noted. Conjunctiva moist and clear, sclerae anicteric] Neck: No JVD/HJR, no thyromegaly or lymphadenopathy noted. No carotid bruit appreciated Cardiac: [Regular rate and rhythm.] [No murmur rub or gallop.] Sternotomy dressing intact. Lungs: [Maintained on ventilator. Symmetrical chest wall movements noted. Chest tube intact to suction. Abdomen: Soft, bowel sounds normoactive. Nontender and nondistended. No abdominal bruit or thrill noted. No masses noted. Musculoskeletal: No fluid collection. Decreased range of motion is noted. Extremities: No clubbing, cyanosis noted. [ No edema noted.] Upper extremity pulses 2+. Lower extremity pulses 2+. Capillary refill less than 3 seconds. Skin: No unusual lesions or rashes. No skin breakdown appreciated. Neuro: Sedated at this time. No tremors appreciated Result/EKG - Labs CBC & BMP: 06/29/16 12:00 06/29/16 12:00 Lab Results: I have reviewed the past 24 hour labs Labs: Laboratory Results - last 24 hr 06/28/16 06/28/16 06/29/16 06:50 19:56 05:21 WBC RBC Hgb Hct MCV MCH MCHC RDW Plt Count MPV Neut % (Auto) Lymph % (Auto) [place] % (Auto) Eos % (Auto) Baso % (Auto) Neut # (Auto) Lymph # (Auto) [place] # (Auto) Eos # (Auto) Baso # (Auto) Immature Gran % Nucleated RBC % Immature Gran # Nucleated RBCs # INR PT Patient/Control Mix Circ Anticoag PTT Patient Temperature ABG pH ABG pH at Pt Temp ABG pCO2 ABG pCO2 at Pt Temp ABG pO2 ABG pO2 at Pt Temp ABG HCO3 ABG Total CO2 ABG O2 Saturation ABG Base Excess ABG Sodium VBG pH VBG pCO2 VBG pO2 VBG HCO3 VBG Total CO2 VBG O2 Saturation VBG Base Excess Hemoglobin Hematocrit Potassium Glucose Ionized Calcium FiO2 Sodium Chloride Carbon Dioxide Anion Gap BUN Creatinine GFR Calculation BUN/Creatinine Ratio POC Glucose 164 H 115 H Calculated Osmolality Calcium Venous Ioniz Calcium Magnesium Total Bilirubin AST ALT Alkaline Phosphatase Total Creatine Kinase CK-MB (CK-2) CK and CKMB Interp Troponin I Total Protein Albumin Globulin Albumin/Globulin Ratio Urine Color Urine Appearance Urine pH Ur Specific [place] Urine Protein Urine Glucose (UA) Urine Ketones Urine Blood Urine Nitrate Urine Bilirubin Urine Urobilinogen Urine Leukocytes Urine RBC Urine WBC Ur Culture Indicated? Blood Type O POSITIVE Antibody Screen Negative Crossmatch See Detail 06/29/16 06/29/16 06/29/16 07:07 07:32 07:32 WBC RBC Hgb Hct MCV MCH MCHC RDW Plt Count 116 L D MPV Neut % (Auto) Lymph % (Auto) [place] % (Auto) Eos % (Auto) Baso % (Auto) Neut # (Auto) Lymph # (Auto) [place] # (Auto) Eos # (Auto) Baso # (Auto) Immature Gran % Nucleated RBC % Immature Gran # Nucleated RBCs # INR PT Patient/Control Mix Circ Anticoag PTT Patient Temperature 37 ABG pH 7.388 ABG pH at Pt Temp 7.388 ABG pCO2 36.4 ABG pCO2 at Pt Temp 36.4 ABG pO2 513.0 H ABG pO2 at Pt Temp 513.0 ABG HCO3 22.3 ABG Total CO2 19.2 L ABG O2 Saturation 99.9 ABG Base Excess -2.5 ABG Sodium 140 VBG pH VBG pCO2 VBG pO2 VBG HCO3 VBG Total CO2 VBG O2 Saturation VBG Base Excess Hemoglobin 12.7 L Hematocrit 39.1 L Potassium 3.4 L Glucose 139 H Ionized Calcium 1.13 L FiO2 Sodium Chloride Carbon Dioxide Anion Gap BUN Creatinine GFR Calculation BUN/Creatinine Ratio POC Glucose Calculated Osmolality Calcium Venous Ioniz Calcium Magnesium Total Bilirubin AST ALT Alkaline Phosphatase Total Creatine Kinase CK-MB (CK-2) CK and CKMB Interp Troponin I Total Protein Albumin Globulin Albumin/Globulin Ratio Urine Color Yellow Urine Appearance Clear Urine pH 5.0 Ur Specific [place] 1.013 Urine Protein Negative Urine Glucose (UA) Negative Urine Ketones Negative Urine Blood Negative Urine Nitrate Negative Urine Bilirubin Negative Urine Urobilinogen < 2.0 H Urine Leukocytes Negative Urine RBC <1 Urine WBC 1 Ur Culture Indicated? Not indicated Blood Type Antibody Screen Crossmatch 06/29/16 06/29/16 06/29/16 09:13 09:45 10:12 WBC RBC Hgb Hct MCV MCH MCHC RDW Plt Count MPV Neut % (Auto) Lymph % (Auto) [place] % (Auto) Eos % (Auto) Baso % (Auto) Neut # (Auto) Lymph # (Auto) [place] # (Auto) Eos # (Auto) Baso # (Auto) Immature Gran % Nucleated RBC % Immature Gran # Nucleated RBCs # INR PT Patient/Control Mix Circ Anticoag PTT Patient Temperature 34 32 36 ABG pH ABG pH at Pt Temp 7.407 7.425 7.353 ABG pCO2 ABG pCO2 at Pt Temp 36.6 33.8 41.0 ABG pO2 ABG pO2 at Pt Temp 34.2 31.5 35.8 ABG HCO3 ABG Total CO2 ABG O2 Saturation ABG Base Excess ABG Sodium 133 L 135 132 L VBG pH 7.364 7.354 7.339 VBG pCO2 42.3 43.0 43.0 VBG pO2 42.1 H 44.6 H 38.4 VBG HCO3 23.1 L 22.7 L 21.8 L VBG Total CO2 22.3 21.8 21.2 VBG O2 Saturation 77.1 78.9 69.7 VBG Base Excess -1.2 L -1.6 L -2.6 L Hemoglobin 9.4 L D 10.5 L 10.5 L Hematocrit 29.0 L 32.6 L 32.3 L Potassium 5.3 H 5.5 H 6.1 H* Glucose 349 H 283 H 281 H Ionized Calcium FiO2 80.00 80.00 80.00 Sodium Chloride Carbon Dioxide Anion Gap BUN Creatinine GFR Calculation BUN/Creatinine Ratio POC Glucose Calculated Osmolality Calcium Venous Ioniz Calcium 0.97 L 1.05 L 1.05 L Magnesium Total Bilirubin AST ALT Alkaline Phosphatase Total Creatine Kinase CK-MB (CK-2) CK and CKMB Interp Troponin I Total Protein Albumin Globulin Albumin/Globulin Ratio Urine Color Urine Appearance Urine pH Ur Specific [place] Urine Protein Urine Glucose (UA) Urine Ketones Urine Blood Urine Nitrate Urine Bilirubin Urine Urobilinogen Urine Leukocytes Urine RBC Urine WBC Ur Culture Indicated? Blood Type Antibody Screen Crossmatch 06/29/16 06/29/16 06/29/16 10:41 10:44 12:00 WBC 7.6 D RBC 4.26 Hgb 11.8 L D Hct 35.8 L MCV 84.0 L MCH 28 MCHC 33.0 RDW 12.4 Plt Count 109 L 143 D MPV 10.5 Neut % (Auto) 83.0 H Lymph % (Auto) 9.3 L [place] % (Auto) 4.5 Eos % (Auto) 2.2 Baso % (Auto) 0.3 Neut # (Auto) 6.3 Lymph # (Auto) 0.7 L [place] # (Auto) 0.3 Eos # (Auto) 0.2 Baso # (Auto) 0.0 Immature Gran % 0.7 Nucleated RBC % 0.0 Immature Gran # 0.05 Nucleated RBCs # 0.00 INR PT Patient/Control Mix Circ Anticoag PTT Patient Temperature 37 ABG pH 7.357 ABG pH at Pt Temp 7.357 ABG pCO2 38.1 ABG pCO2 at Pt Temp 38.1 ABG pO2 234.0 H ABG pO2 at Pt Temp 234.0 ABG HCO3 21.4 ABG Total CO2 19.1 L ABG O2 Saturation 99.2 ABG Base Excess -3.7 L ABG Sodium 135 VBG pH VBG pCO2 VBG pO2 VBG HCO3 VBG Total CO2 VBG O2 Saturation VBG Base Excess Hemoglobin 11.5 L Hematocrit 35.5 L Potassium 5.0 Glucose 264 H Ionized Calcium 1.24 FiO2 Sodium Chloride Carbon Dioxide Anion Gap BUN Creatinine GFR Calculation BUN/Creatinine Ratio POC Glucose Calculated Osmolality Calcium Venous Ioniz Calcium Magnesium Total Bilirubin AST ALT Alkaline Phosphatase Total Creatine Kinase CK-MB (CK-2) CK and CKMB Interp Troponin I Total Protein Albumin Globulin Albumin/Globulin Ratio Urine Color Urine Appearance Urine pH Ur Specific [place] Urine Protein Urine Glucose (UA) Urine Ketones Urine Blood Urine Nitrate Urine Bilirubin Urine Urobilinogen Urine Leukocytes Urine RBC Urine WBC Ur Culture Indicated? Blood Type Antibody Screen Crossmatch 06/29/16 06/29/16 06/29/16 12:00 12:00 12:05 WBC RBC Hgb Hct MCV MCH MCHC RDW Plt Count MPV Neut % (Auto) Lymph % (Auto) [place] % (Auto) Eos % (Auto) Baso % (Auto) Neut # (Auto) Lymph # (Auto) [place] # (Auto) Eos # (Auto) Baso # (Auto) Immature Gran % Nucleated RBC % Immature Gran # Nucleated RBCs # INR PT Patient/Control Mix Circ Anticoag PTT Patient Temperature ABG pH 7.367 ABG pH at Pt Temp ABG pCO2 39.7 ABG pCO2 at Pt Temp ABG pO2 126.8 H ABG pO2 at Pt Temp ABG HCO3 22.3 ABG Total CO2 23.5 ABG O2 Saturation 97.8 ABG Base Excess -2.8 L ABG Sodium VBG pH VBG pCO2 VBG pO2 VBG HCO3 VBG Total CO2 VBG O2 Saturation VBG Base Excess Hemoglobin 12.5 L Hematocrit 37.0 L Potassium 3.7 3.5 Glucose 229 H 220 H Ionized Calcium FiO2 Sodium 142 Chloride 110 H Carbon Dioxide 24 Anion Gap 11.7 BUN 13 Creatinine 1.40 H GFR Calculation 71 BUN/Creatinine Ratio 9.00 POC Glucose Calculated Osmolality 289.1 Calcium 8.2 L Venous Ioniz Calcium Magnesium 2.2 Total Bilirubin 1.20 H AST 62 H ALT 65 H Alkaline Phosphatase 62 Total Creatine Kinase 182 CK-MB (CK-2) 15.0 H CK and CKMB Interp 8.2 Troponin I 2.300 H Total Protein 5.5 L Albumin 3.5 Globulin 2.0 L Albumin/Globulin Ratio 1.7 Urine Color Urine Appearance Urine pH Ur Specific [place] Urine Protein Urine Glucose (UA) Urine Ketones Urine Blood Urine Nitrate Urine Bilirubin Urine Urobilinogen Urine Leukocytes Urine RBC Urine WBC Ur Culture Indicated? Blood Type Antibody Screen Crossmatch 06/29/16 06/29/16 14:10 14:19 WBC RBC Hgb Hct MCV MCH MCHC RDW Plt Count MPV Neut % (Auto) Lymph % (Auto) [place] % (Auto) Eos % (Auto) Baso % (Auto) Neut # (Auto) Lymph # (Auto) [place] # (Auto) Eos # (Auto) Baso # (Auto) Immature Gran % Nucleated RBC % Immature Gran # Nucleated RBCs # INR 1.2 PT Patient/Control Mix 12.7 Circ Anticoag PTT 29.4 Patient Temperature ABG pH 7.381 ABG pH at Pt Temp ABG pCO2 41.3 ABG pCO2 at Pt Temp ABG pO2 116.4 H ABG pO2 at Pt Temp ABG HCO3 23.9 ABG Total CO2 25.2 ABG O2 Saturation 97.3 ABG Base Excess -1.1 ABG Sodium VBG pH VBG pCO2 VBG pO2 VBG HCO3 VBG Total CO2 VBG O2 Saturation VBG Base Excess Hemoglobin 10.6 L Hematocrit 31.0 L Potassium 4.6 Glucose 212 H Ionized Calcium FiO2 Sodium Chloride Carbon Dioxide Anion Gap BUN Creatinine GFR Calculation BUN/Creatinine Ratio POC Glucose Calculated Osmolality Calcium Venous Ioniz Calcium Magnesium Total Bilirubin AST ALT Alkaline Phosphatase Total Creatine Kinase CK-MB (CK-2) CK and CKMB Interp Troponin I Total Protein Albumin Globulin Albumin/Globulin Ratio Urine Color Urine Appearance Urine pH Ur Specific [place] Urine Protein Urine Glucose (UA) Urine Ketones Urine Blood Urine Nitrate Urine Bilirubin Urine Urobilinogen Urine Leukocytes Urine RBC Urine WBC Ur Culture Indicated? Blood Type Antibody Screen Crossmatch - Diagnostic Findings Procedure: Chest x-ray: report reviewed by me - EKG EKG results: interpreted by me EKG shows: sinus rhythm Quality Measures - VTE Contraindication to Pharmacological VTE Prophylaxis: Already on Theraputic Agent , No Prophylaxis Needed <Tod De Paz - Last Filed: 06/29/16 19:13> Cardiology - PN: Subj Interval history: The patient personally examined. He is post CABG intubated but awake. The patient is stable clinically and hemodynamically post CABG. He is awake and responsive. He is on minimal medications at this time. His rhythm remained sinus and his hemodynamics: His blood pressure and central pressures are normal and stable. The patient's exam is unremarkable is saying he is alert. Lungs with good air movement. Cardiovascular is regular rate and rhythm without gross murmur or rub. Neurologically he is intact moving everything. Exam (Progress Note) - Constitutional Vitals: Period Temp Pulse Resp BP Sys/Jackson Pulse Ox Last 24 Hr 97 F-99.3 F 65-92 10-18 76-160/37-80 96-100 Result/EKG - Labs CBC & BMP: 06/29/16 12:00 06/29/16 12:00 Labs: Laboratory Results - last 24 hr 06/28/16 06/28/16 06/29/16 06:50 19:56 05:21 WBC RBC Hgb Hct MCV MCH MCHC RDW Plt Count MPV Neut % (Auto) Lymph % (Auto) [place] % (Auto) Eos % (Auto) Baso % (Auto) Neut # (Auto) Lymph # (Auto) [place] # (Auto) Eos # (Auto) Baso # (Auto) Immature Gran % Nucleated RBC % Immature Gran # Nucleated RBCs # INR PT Patient/Control Mix Circ Anticoag PTT Patient Temperature ABG pH ABG pH at Pt Temp ABG pCO2 ABG pCO2 at Pt Temp ABG pO2 ABG pO2 at Pt Temp ABG HCO3 ABG Total CO2 ABG O2 Saturation ABG Base Excess ABG Sodium VBG pH VBG pCO2 VBG pO2 VBG HCO3 VBG Total CO2 VBG O2 Saturation VBG Base Excess Hemoglobin Hematocrit Potassium Glucose Ionized Calcium FiO2 Sodium Chloride Carbon Dioxide Anion Gap BUN Creatinine GFR Calculation BUN/Creatinine Ratio POC Glucose 164 H 115 H Calculated Osmolality Calcium Venous Ioniz Calcium Magnesium Total Bilirubin AST ALT Alkaline Phosphatase Total Creatine Kinase CK-MB (CK-2) CK and CKMB Interp Troponin I Total Protein Albumin Globulin Albumin/Globulin Ratio Urine Color Urine Appearance Urine pH Ur Specific [place] Urine Protein Urine Glucose (UA) Urine Ketones Urine Blood Urine Nitrate Urine Bilirubin Urine Urobilinogen Urine Leukocytes Urine RBC Urine WBC Ur Culture Indicated? Blood Type O POSITIVE Antibody Screen Negative Crossmatch See Detail 06/29/16 06/29/16 06/29/16 07:07 07:32 07:32 WBC RBC Hgb Hct MCV MCH MCHC RDW Plt Count 116 L D MPV Neut % (Auto) Lymph % (Auto) [place] % (Auto) Eos % (Auto) Baso % (Auto) Neut # (Auto) Lymph # (Auto) [place] # (Auto) Eos # (Auto) Baso # (Auto) Immature Gran % Nucleated RBC % Immature Gran # Nucleated RBCs # INR PT Patient/Control Mix Circ Anticoag PTT Patient Temperature 37 ABG pH 7.388 ABG pH at Pt Temp 7.388 ABG pCO2 36.4 ABG pCO2 at Pt Temp 36.4 ABG pO2 513.0 H ABG pO2 at Pt Temp 513.0 ABG HCO3 22.3 ABG Total CO2 19.2 L ABG O2 Saturation 99.9 ABG Base Excess -2.5 ABG Sodium 140 VBG pH VBG pCO2 VBG pO2 VBG HCO3 VBG Total CO2 VBG O2 Saturation VBG Base Excess Hemoglobin 12.7 L Hematocrit 39.1 L Potassium 3.4 L Glucose 139 H Ionized Calcium 1.13 L FiO2 Sodium Chloride Carbon Dioxide Anion Gap BUN Creatinine GFR Calculation BUN/Creatinine Ratio POC Glucose Calculated Osmolality Calcium Venous Ioniz Calcium Magnesium Total Bilirubin AST ALT Alkaline Phosphatase Total Creatine Kinase CK-MB (CK-2) CK and CKMB Interp Troponin I Total Protein Albumin Globulin Albumin/Globulin Ratio Urine Color Yellow Urine Appearance Clear Urine pH 5.0 Ur Specific [place] 1.013 Urine Protein Negative Urine Glucose (UA) Negative Urine Ketones Negative Urine Blood Negative Urine Nitrate Negative Urine Bilirubin Negative Urine Urobilinogen < 2.0 H Urine Leukocytes Negative Urine RBC <1 Urine WBC 1 Ur Culture Indicated? Not indicated Blood Type Antibody Screen Crossmatch 06/29/16 06/29/16 06/29/16 09:13 09:45 10:12 WBC RBC Hgb Hct MCV MCH MCHC RDW Plt Count MPV Neut % (Auto) Lymph % (Auto) [place] % (Auto) Eos % (Auto) Baso % (Auto) Neut # (Auto) Lymph # (Auto) [place] # (Auto) Eos # (Auto) Baso # (Auto) Immature Gran % Nucleated RBC % Immature Gran # Nucleated RBCs # INR PT Patient/Control Mix Circ Anticoag PTT Patient Temperature 34 32 36 ABG pH ABG pH at Pt Temp 7.407 7.425 7.353 ABG pCO2 ABG pCO2 at Pt Temp 36.6 33.8 41.0 ABG pO2 ABG pO2 at Pt Temp 34.2 31.5 35.8 ABG HCO3 ABG Total CO2 ABG O2 Saturation ABG Base Excess ABG Sodium 133 L 135 132 L VBG pH 7.364 7.354 7.339 VBG pCO2 42.3 43.0 43.0 VBG pO2 42.1 H 44.6 H 38.4 VBG HCO3 23.1 L 22.7 L 21.8 L VBG Total CO2 22.3 21.8 21.2 VBG O2 Saturation 77.1 78.9 69.7 VBG Base Excess -1.2 L -1.6 L -2.6 L Hemoglobin 9.4 L D 10.5 L 10.5 L Hematocrit 29.0 L 32.6 L 32.3 L Potassium 5.3 H 5.5 H 6.1 H* Glucose 349 H 283 H 281 H Ionized Calcium FiO2 80.00 80.00 80.00 Sodium Chloride Carbon Dioxide Anion Gap BUN Creatinine GFR Calculation BUN/Creatinine Ratio POC Glucose Calculated Osmolality Calcium Venous Ioniz Calcium 0.97 L 1.05 L 1.05 L Magnesium Total Bilirubin AST ALT Alkaline Phosphatase Total Creatine Kinase CK-MB (CK-2) CK and CKMB Interp Troponin I Total Protein Albumin Globulin Albumin/Globulin Ratio Urine Color Urine Appearance Urine pH Ur Specific [place] Urine Protein Urine Glucose (UA) Urine Ketones Urine Blood Urine Nitrate Urine Bilirubin Urine Urobilinogen Urine Leukocytes Urine RBC Urine WBC Ur Culture Indicated? Blood Type Antibody Screen Crossmatch 06/29/16 06/29/16 06/29/16 10:41 10:44 12:00 WBC 7.6 D RBC 4.26 Hgb 11.8 L D Hct 35.8 L MCV 84.0 L MCH 28 MCHC 33.0 RDW 12.4 Plt Count 109 L 143 D MPV 10.5 Neut % (Auto) 83.0 H Lymph % (Auto) 9.3 L [place] % (Auto) 4.5 Eos % (Auto) 2.2 Baso % (Auto) 0.3 Neut # (Auto) 6.3 Lymph # (Auto) 0.7 L [place] # (Auto) 0.3 Eos # (Auto) 0.2 Baso # (Auto) 0.0 Immature Gran % 0.7 Nucleated RBC % 0.0 Immature Gran # 0.05 Nucleated RBCs # 0.00 INR PT Patient/Control Mix Circ Anticoag PTT Patient Temperature 37 ABG pH 7.357 ABG pH at Pt Temp 7.357 ABG pCO2 38.1 ABG pCO2 at Pt Temp 38.1 ABG pO2 234.0 H ABG pO2 at Pt Temp 234.0 ABG HCO3 21.4 ABG Total CO2 19.1 L ABG O2 Saturation 99.2 ABG Base Excess -3.7 L ABG Sodium 135 VBG pH VBG pCO2 VBG pO2 VBG HCO3 VBG Total CO2 VBG O2 Saturation VBG Base Excess Hemoglobin 11.5 L Hematocrit 35.5 L Potassium 5.0 Glucose 264 H Ionized Calcium 1.24 FiO2 Sodium Chloride Carbon Dioxide Anion Gap BUN Creatinine GFR Calculation BUN/Creatinine Ratio POC Glucose Calculated Osmolality Calcium Venous Ioniz Calcium Magnesium Total Bilirubin AST ALT Alkaline Phosphatase Total Creatine Kinase CK-MB (CK-2) CK and CKMB Interp Troponin I Total Protein Albumin Globulin Albumin/Globulin Ratio Urine Color Urine Appearance Urine pH Ur Specific [place] Urine Protein Urine Glucose (UA) Urine Ketones Urine Blood Urine Nitrate Urine Bilirubin Urine Urobilinogen Urine Leukocytes Urine RBC Urine WBC Ur Culture Indicated? Blood Type Antibody Screen Crossmatch [id number] 06/29/16 12:00 12:00 12:05 WBC RBC Hgb Hct MCV MCH MCHC RDW Plt Count MPV Neut % (Auto) Lymph % (Auto) [place] % (Auto) Eos % (Auto) Baso % (Auto) Neut # (Auto) Lymph # (Auto) [place] # (Auto) Eos # (Auto) Baso # (Auto) Immature Gran % Nucleated RBC % Immature Gran # Nucleated RBCs # INR PT Patient/Control Mix Circ Anticoag PTT Patient Temperature ABG pH 7.367 ABG pH at Pt Temp ABG pCO2 39.7 ABG pCO2 at Pt Temp ABG pO2 126.8 H ABG pO2 at Pt Temp ABG HCO3 22.3 ABG Total CO2 23.5 ABG O2 Saturation 97.8 ABG Base Excess -2.8 L ABG Sodium VBG pH VBG pCO2 VBG pO2 VBG HCO3 VBG Total CO2 VBG O2 Saturation VBG Base Excess Hemoglobin 12.5 L Hematocrit 37.0 L Potassium 3.7 3.5 Glucose 229 H 220 H Ionized Calcium FiO2 Sodium 142 Chloride 110 H Carbon Dioxide 24 Anion Gap 11.7 BUN 13 Creatinine 1.40 H GFR Calculation 71 BUN/Creatinine Ratio 9.00 POC Glucose Calculated Osmolality 289.1 Calcium 8.2 L Venous Ioniz Calcium Magnesium 2.2 Total Bilirubin 1.20 H AST 62 H ALT 65 H Alkaline Phosphatase 62 Total Creatine Kinase 182 CK-MB (CK-2) 15.0 H CK and CKMB Interp 8.2 Troponin I 2.300 H Total Protein 5.5 L Albumin 3.5 Globulin 2.0 L Albumin/Globulin Ratio 1.7 Urine Color Urine Appearance Urine pH Ur Specific [place] Urine Protein Urine Glucose (UA) Urine Ketones Urine Blood Urine Nitrate Urine Bilirubin Urine Urobilinogen Urine Leukocytes Urine RBC Urine WBC Ur Culture Indicated? Blood Type Antibody Screen Crossmatch 06/29/16 06/29/16 06/29/16 14:10 14:19 17:26 WBC RBC Hgb Hct MCV MCH MCHC RDW Plt Count MPV Neut % (Auto) Lymph % (Auto) [place] % (Auto) Eos % (Auto) Baso % (Auto) Neut # (Auto) Lymph # (Auto) [place] # (Auto) Eos # (Auto) Baso # (Auto) Immature Gran % Nucleated RBC % Immature Gran # Nucleated RBCs # INR 1.2 PT Patient/Control Mix 12.7 Circ Anticoag PTT 29.4 Patient Temperature ABG pH 7.381 7.283 L ABG pH at Pt Temp ABG pCO2 41.3 49.2 H ABG pCO2 at Pt Temp ABG pO2 116.4 H 128.0 H ABG pO2 at Pt Temp ABG HCO3 23.9 21.3 ABG Total CO2 25.2 21.2 L ABG O2 Saturation 97.3 98.6 ABG Base Excess -1.1 -3.8 L ABG Sodium VBG pH VBG pCO2 VBG pO2 VBG HCO3 VBG Total CO2 VBG O2 Saturation VBG Base Excess Hemoglobin 10.6 L 11.0 L Hematocrit 31.0 L 33.8 L Potassium 4.6 3.5 Glucose 212 H 161 H Ionized Calcium FiO2 Sodium Chloride Carbon Dioxide Anion Gap BUN Creatinine GFR Calculation BUN/Creatinine Ratio POC Glucose Calculated Osmolality Calcium Venous Ioniz Calcium Magnesium Total Bilirubin AST ALT Alkaline Phosphatase Total Creatine Kinase CK-MB (CK-2) CK and CKMB Interp Troponin I Total Protein Albumin Globulin Albumin/Globulin Ratio Urine Color Urine Appearance Urine pH Ur Specific [place] Urine Protein Urine Glucose (UA) Urine Ketones Urine Blood Urine Nitrate Urine Bilirubin Urine Urobilinogen Urine Leukocytes Urine RBC Urine WBC Ur Culture Indicated? Blood Type Antibody Screen Crossmatch 06/29/16 18:22 WBC RBC Hgb Hct MCV MCH MCHC RDW Plt Count MPV Neut % (Auto) Lymph % (Auto) [place] % (Auto) Eos % (Auto) Baso % (Auto) Neut # (Auto) Lymph # (Auto) [place] # (Auto) Eos # (Auto) Baso # (Auto) Immature Gran % Nucleated RBC % Immature Gran # Nucleated RBCs # INR PT Patient/Control Mix Circ Anticoag PTT Patient Temperature ABG pH 7.324 L ABG pH at Pt Temp ABG pCO2 46.4 ABG pCO2 at Pt Temp ABG pO2 140.4 H ABG pO2 at Pt Temp ABG HCO3 23.6 ABG Total CO2 25.0 ABG O2 Saturation 97.8 ABG Base Excess -2.5 ABG Sodium VBG pH VBG pCO2 VBG pO2 VBG HCO3 VBG Total CO2 VBG O2 Saturation VBG Base Excess Hemoglobin 11.0 L Hematocrit 32.0 L Potassium 4.1 Glucose 137 H Ionized Calcium FiO2 Sodium Chloride Carbon Dioxide Anion Gap BUN Creatinine GFR Calculation BUN/Creatinine Ratio POC Glucose Calculated Osmolality Calcium Venous Ioniz Calcium Magnesium Total Bilirubin AST ALT Alkaline Phosphatase Total Creatine Kinase CK-MB (CK-2) CK and CKMB Interp Troponin I Total Protein Albumin Globulin Albumin/Globulin Ratio Urine Color Urine Appearance Urine pH Ur Specific [place] Urine Protein Urine Glucose (UA) Urine Ketones Urine Blood Urine Nitrate Urine Bilirubin Urine Urobilinogen Urine Leukocytes Urine RBC Urine WBC Ur Culture Indicated? Blood Type Antibody Screen Crossmatch
[2016-06-29 17:31] LABS: ABG Base Excess -3.8 MMOL/L (-2.5-2.5); ABG HCO3 21.3 MMOL/L (20-26); ABG Oxygen Saturation 98.6 % (95-100); ABG PCO2 49.2 MM HG (35-48); ABG PH 7.283 (7.35-7.45); ABG TCO2 21.2 MMOL/L (23-27); Glucose Heart Surgery 161 MG/DL (74-106); Hematocrit Heart Surgery 33.8 PERCENT (42-52); Potassium Heart/CVR 3.5 MMOL/L (3.5-5.1)
[2016-06-29 18:27] LABS: ABG Base Excess -2.5 MMOL/L (-2.5-2.5); ABG HCO3 23.6 MMOL/L (20-26); ABG Oxygen Saturation 97.8 % (95-100); ABG PCO2 46.4 MM HG (35-48); ABG PH 7.324 (7.35-7.45); ABG PO2 140.4 MM HG (80-95); Glucose Heart Surgery 137 MG/DL (74-106); Potassium Heart/CVR 4.1 MMOL/L (3.5-5.1)
[2016-06-29] MEDS: CEFUROXIME INJ 1,500 MG in SODIUM CHLORIDE 0.9% 100 ML IV SCH (18:50)
[2016-06-29 20:06] LABS: ABG HCO3 23.1 MMOL/L (20-26); ABG Oxygen Saturation 97.8 % (95-100); ABG PCO2 45.6 MM HG (35-48); ABG PH 7.323 (7.35-7.45); ABG PO2 134.8 MM HG (80-95); ABG TCO2 24.5 MMOL/L (23-27); Glucose Heart Surgery 135 MG/DL (74-106); Hemoglobin Heart Surgery 11.2 G/DL (14.0-18.0); Potassium Heart/CVR 3.7 MMOL/L (3.5-5.1)
[2016-06-29] MEDS ORDERED: FUROSEMIDE 40 MG/4 ML VIAL IV PRN (20:31)
[2016-06-29 20:37] LABS: CKMB % 10.4 %
[2016-06-29 20:46] LABS: Troponin I Only 7.41 NG/ML (0.00-0.045)
[2016-06-30] MEDS: KETOROLAC 30 MG/1 ML VIAL IV SCH ×6 (00:38→21:36)
[2016-06-30] MEDS: ALBUMIN 5% 12.5 GM in PREMIX 1 EACH IV PRN ×2 (01:37→01:53)
[2016-06-30 03:19] LABS: ABG Base Excess -1.2 MMOL/L (-2.5-2.5); ABG HCO3 23.4 MMOL/L (20-26); ABG Oxygen Saturation 98.7 % (95-100); ABG PCO2 43.3 MM HG (35-48); ABG PH 7.357 (7.35-7.45); ABG TCO2 22.3 MMOL/L (23-27); Glucose Heart Surgery 125 MG/DL (74-106); Hematocrit Heart Surgery 29.6 PERCENT (42-52); Hemoglobin Heart Surgery 9.6 G/DL (14.0-18.0); Potassium Heart/CVR 3.7 MMOL/L (3.5-5.1)
[2016-06-30 03:21] LABS: Eosinophils % 0.1 % (0.00-10.9); Hemoglobin 9.4 GM/DL (14.0-18.0); Immature Granulocytes % 0.5 %; Immature Granulocytes Absolute 0.07 #; Lymphocytes # 0.6 10*3/uL (1.4-4.0); Lymphocytes % 4.5 % (21.2-54.2); Mean Corpuscular HGB Conc 33.6 GM/DL (32-36); Mean Corpuscular Hemoglobin 28 PG (27-34); Mean Corpuscular Volume 84.1 FL (87-102); Mean Platelet Volume 10.5 FL (9.6-12.0); Monocytes # 0.9 10*3/uL (0.11-0.8); Monocytes % 6.8 % (1.7-12.7); Neutrophils % 88.1 % (38.7-73.9); Platelet Count 148 T/CUMM (130-400); Red Blood Count 3.33 MC/CUMM (3.8-5.5); Red Cell Distribution Width 12.5 % (9.3-17.3); White Blood Count 13.6 T/CUMM (4-12)
[2016-06-30] MEDS: POTASSIUM CHLORIDE RIDER 20 MEQ in PREMIX 1 EACH IV PRN ×2 (03:47→05:41)
[2016-06-30] MEDS: INSULIN REGULAR DRIP 100 ML IV SCH ×2 (03:49→12:04)
[2016-06-30 03:51] LABS: Lymphocytes 7 % (20-55); Segmented Neutrophils 89 % (50-85); Total Cells Counted 100
[2016-06-30 03:53] LABS: Hypochromasia Slight; Microcytosis Slight; Platelet Estimate Adequate
[2016-06-30 03:54] LABS: CKMB % 12.8 %
[2016-06-30 03:56] LABS: Troponin I Only 15.6 NG/ML (0.00-0.045)
[2016-06-30 04:05] LABS: Bilirubin,Direct 0.2 MG/DL (0.0-0.20); Bilirubin,Total 0.8 MG/DL (0.2-1.0); Calcium 7.7 MG/DL (8.5-10.1); Magnesium 1.8 MG/DL (1.8-2.4); Osmolality,Calculated 293.4 MOS/KG (273-304); Potassium 3.8 MMOL/L (3.5-5.1); Total Protein 5.6 G/DL (6.4-8.3)
[2016-06-30 05:14] LABS: ABG Base Excess -1.5 MMOL/L (-2.5-2.5); ABG HCO3 23.2 MMOL/L (20-26); ABG Oxygen Saturation 98.8 % (95-100); ABG PH 7.377 (7.35-7.45); ABG TCO2 21.4 MMOL/L (23-27); Glucose Heart Surgery 137 MG/DL (74-106); Hematocrit Heart Surgery 31.4 PERCENT (42-52); Hemoglobin Heart Surgery 10.2 G/DL (14.0-18.0)
[2016-06-30 06:19] LABS: ABG Base Excess -1.1 MMOL/L (-2.5-2.5); ABG HCO3 23.5 MMOL/L (20-26); ABG Oxygen Saturation 98.2 % (95-100); ABG PCO2 40.8 MM HG (35-48); ABG PH 7.376 (7.35-7.45); ABG TCO2 21.8 MMOL/L (23-27); Glucose Heart Surgery 134 MG/DL (74-106); Hematocrit Heart Surgery 31.3 PERCENT (42-52); Hemoglobin Heart Surgery 10.1 G/DL (14.0-18.0); Potassium Heart/CVR 4.2 MMOL/L (3.5-5.1)
[2016-06-30] MEDS: CEFUROXIME INJ 1,500 MG in SODIUM CHLORIDE 0.9% 100 ML IV SCH (06:36)
--- NOTE | 2016-06-30 07:32 | Cardiology Progress Note ---
Assessment and Plan (1) Hypertension Status: Chronic Assessment and plan: Postoperatively her his blood pressures little low but this is not surprising. We'll monitor this. Current Visit: Yes Qualifiers: Hypertension type: essential hypertension Qualified Code(s): I10 - Essential (primary) hypertension (2) Diabetes Status: Chronic Assessment and plan: He is on postop sliding scale. Current Visit: Yes Qualifiers: Diabetes mellitus type: type 2 Diabetes mellitus complication status: without complication (3) CAD (coronary artery disease) Status: Chronic Assessment and plan: Patient is now post coronary bypass surgery for this. Current Visit: Yes (4) S/P CABG x 3 Status: Chronic Assessment and plan: He is immediate post CABG and doing well. Current Visit: Yes (5) Dyslipidemia Status: Chronic Assessment and plan: I don't see that he was on statins as an outpatient. We will need to start those postoperative. I recommend rosuvastatin 20 mg daily. Current Visit: Yes Cardiology - PN: Subj Interval history: Patient is one day postoperative CABG with LARA to LAD, SVG to PDA, and SVG to ramus intermedius. This morning the patient has been extubated is awake and alert doing well. Reviewing the chart indicates that he's had an uneventful night. Nursing staff indicates that he is done well. His blood pressure little low but he's been taken off of his Naeem-Synephrine infusion is on no pressors. His rhythm is remained sinus without any dysrhythmias. His SPO2 is excellent. His cardiac output is greater than 5. His postoperative lab work this morning is reviewed and remains stable. Exam (Progress Note) - Constitutional Vitals: Period Temp Pulse Resp BP Sys/Jackson Pulse Ox Last 24 Hr 97 F-99.3 F 79-92 9-13 76-127/37-70 97-100 Exam: General appearance: Awake alert in no distress postoperatively. HEENT exam: normal inspection, atraumatic, NG tube in place. He is extubated. Neck exam: normal inspection no JVD. No carotid bruit. Trachea is in midline Respiratory/lungs exam: clear to auscultation bilaterally anteriorly with good air movement. Cardiovascular exam: regular rate and rhythm, no murmur or gallop or rub. No precordial lift. Chest wall exam: Immediate postop with bandages. GI/Abdominal exam: normal bowel sounds, soft, nontender. Extremeties/musculoskeletal: Bilaterally post graft donor sites are bandages on both lower legs. Neurological exam: alert, oriented X3, no focal deficits Psychiatric exam: Responds appropriately. Skin exam: normal color, warm Result/EKG - Labs CBC & BMP: 06/30/16 03:15 06/30/16 03:15 Lab Results: I have reviewed the past 24 hour labs Labs: Laboratory Results - last 24 hr 06/28/16 06/29/16 06/29/16 06:50 07:07 07:32 WBC RBC Hgb Hct MCV MCH MCHC RDW Plt Count 116 L D MPV Neut % (Auto) Lymph % (Auto) [place] % (Auto) Eos % (Auto) Baso % (Auto) Neut # (Auto) Lymph # (Auto) [place] # (Auto) Eos # (Auto) Baso # (Auto) Total Counted Immature Gran % Nucleated RBC % Immature Gran # Segmented Neutrophils Lymphocytes Monocytes Nucleated RBCs # Platelet Estimate Hypochromasia Microcytosis INR PT Patient/Control Mix Circ Anticoag PTT Patient Temperature ABG pH ABG pH at Pt Temp ABG pCO2 ABG pCO2 at Pt Temp ABG pO2 ABG pO2 at Pt Temp ABG HCO3 ABG Total CO2 ABG O2 Saturation ABG Base Excess ABG Sodium VBG pH VBG pCO2 VBG pO2 VBG HCO3 VBG Total CO2 VBG O2 Saturation VBG Base Excess Hemoglobin Hematocrit Potassium Glucose Ionized Calcium FiO2 Sodium Chloride Carbon Dioxide Anion Gap BUN Creatinine GFR Calculation BUN/Creatinine Ratio Calculated Osmolality Calcium Venous Ioniz Calcium Magnesium Total Bilirubin Direct Bilirubin AST ALT Alkaline Phosphatase Total Creatine Kinase CK-MB (CK-2) CK and CKMB Interp Troponin I Total Protein Albumin Globulin Albumin/Globulin Ratio Urine Color Yellow Urine Appearance Clear Urine pH 5.0 Ur Specific [place] 1.013 Urine Protein Negative Urine Glucose (UA) Negative Urine Ketones Negative Urine Blood Negative Urine Nitrate Negative Urine Bilirubin Negative Urine Urobilinogen < 2.0 H Urine Leukocytes Negative Urine RBC <1 Urine WBC 1 Ur Culture Indicated? Not indicated Blood Type O POSITIVE Antibody Screen Negative Crossmatch See Detail 06/29/16 06/29/16 06/29/16 07:32 09:13 09:45 WBC RBC Hgb Hct MCV MCH MCHC RDW Plt Count MPV Neut % (Auto) Lymph % (Auto) [place] % (Auto) Eos % (Auto) Baso % (Auto) Neut # (Auto) Lymph # (Auto) [place] # (Auto) Eos # (Auto) Baso # (Auto) Total Counted Immature Gran % Nucleated RBC % Immature Gran # Segmented Neutrophils Lymphocytes Monocytes Nucleated RBCs # Platelet Estimate Hypochromasia Microcytosis INR PT Patient/Control Mix Circ Anticoag PTT Patient Temperature 37 34 32 ABG pH 7.388 ABG pH at Pt Temp 7.388 7.407 7.425 ABG pCO2 36.4 ABG pCO2 at Pt Temp 36.4 36.6 33.8 ABG pO2 513.0 H ABG pO2 at Pt Temp 513.0 34.2 31.5 ABG HCO3 22.3 ABG Total CO2 19.2 L ABG O2 Saturation 99.9 ABG Base Excess -2.5 ABG Sodium 140 133 L 135 VBG pH 7.364 7.354 VBG pCO2 42.3 43.0 VBG pO2 42.1 H 44.6 H VBG HCO3 23.1 L 22.7 L VBG Total CO2 22.3 21.8 VBG O2 Saturation 77.1 78.9 VBG Base Excess -1.2 L -1.6 L Hemoglobin 12.7 L 9.4 L D 10.5 L Hematocrit 39.1 L 29.0 L 32.6 L Potassium 3.4 L 5.3 H 5.5 H Glucose 139 H 349 H 283 H Ionized Calcium 1.13 L FiO2 80.00 80.00 Sodium Chloride Carbon Dioxide Anion Gap BUN Creatinine GFR Calculation BUN/Creatinine Ratio Calculated Osmolality Calcium Venous Ioniz Calcium 0.97 L 1.05 L Magnesium Total Bilirubin Direct Bilirubin AST ALT Alkaline Phosphatase Total Creatine Kinase CK-MB (CK-2) CK and CKMB Interp Troponin I Total Protein Albumin Globulin Albumin/Globulin Ratio Urine Color Urine Appearance Urine pH Ur Specific [place] Urine Protein Urine Glucose (UA) Urine Ketones Urine Blood Urine Nitrate Urine Bilirubin Urine Urobilinogen Urine Leukocytes Urine RBC Urine WBC Ur Culture Indicated? Blood Type Antibody Screen Crossmatch 06/29/16 06/29/16 06/29/16 10:12 10:41 10:44 WBC RBC Hgb Hct MCV MCH MCHC RDW Plt Count 109 L MPV Neut % (Auto) Lymph % (Auto) [place] % (Auto) Eos % (Auto) Baso % (Auto) Neut # (Auto) Lymph # (Auto) [place] # (Auto) Eos # (Auto) Baso # (Auto) Total Counted Immature Gran % Nucleated RBC % Immature Gran # Segmented Neutrophils Lymphocytes Monocytes Nucleated RBCs # Platelet Estimate Hypochromasia Microcytosis INR PT Patient/Control Mix Circ Anticoag PTT Patient Temperature 36 37 ABG pH 7.357 ABG pH at Pt Temp 7.353 7.357 ABG pCO2 38.1 ABG pCO2 at Pt Temp 41.0 38.1 ABG pO2 234.0 H ABG pO2 at Pt Temp 35.8 234.0 ABG HCO3 21.4 ABG Total CO2 19.1 L ABG O2 Saturation 99.2 ABG Base Excess -3.7 L ABG Sodium 132 L 135 VBG pH 7.339 VBG pCO2 43.0 VBG pO2 38.4 VBG HCO3 21.8 L VBG Total CO2 21.2 VBG O2 Saturation 69.7 VBG Base Excess -2.6 L Hemoglobin 10.5 L 11.5 L Hematocrit 32.3 L 35.5 L Potassium 6.1 H* 5.0 Glucose 281 H 264 H Ionized Calcium 1.24 FiO2 80.00 Sodium Chloride Carbon Dioxide Anion Gap BUN Creatinine GFR Calculation BUN/Creatinine Ratio Calculated Osmolality Calcium Venous Ioniz Calcium 1.05 L Magnesium Total Bilirubin Direct Bilirubin AST ALT Alkaline Phosphatase Total Creatine Kinase CK-MB (CK-2) CK and CKMB Interp Troponin I Total Protein Albumin Globulin Albumin/Globulin Ratio Urine Color Urine Appearance Urine pH Ur Specific [place] Urine Protein Urine Glucose (UA) Urine Ketones Urine Blood Urine Nitrate Urine Bilirubin Urine Urobilinogen Urine Leukocytes Urine RBC Urine WBC Ur Culture Indicated? Blood Type Antibody Screen Crossmatch 06/29/16 06/29/16 06/29/16 12:00 12:00 12:00 WBC 7.6 D RBC 4.26 Hgb 11.8 L D Hct 35.8 L MCV 84.0 L MCH 28 MCHC 33.0 RDW 12.4 Plt Count 143 D MPV 10.5 Neut % (Auto) 83.0 H Lymph % (Auto) 9.3 L [place] % (Auto) 4.5 Eos % (Auto) 2.2 Baso % (Auto) 0.3 Neut # (Auto) 6.3 Lymph # (Auto) 0.7 L [place] # (Auto) 0.3 Eos # (Auto) 0.2 Baso # (Auto) 0.0 Total Counted Immature Gran % 0.7 Nucleated RBC % 0.0 Immature Gran # 0.05 Segmented Neutrophils Lymphocytes Monocytes Nucleated RBCs # 0.00 Platelet Estimate Hypochromasia Microcytosis INR PT Patient/Control Mix Circ Anticoag PTT Patient Temperature ABG pH ABG pH at Pt Temp ABG pCO2 ABG pCO2 at Pt Temp ABG pO2 ABG pO2 at Pt Temp ABG HCO3 ABG Total CO2 ABG O2 Saturation ABG Base Excess ABG Sodium VBG pH VBG pCO2 VBG pO2 VBG HCO3 VBG Total CO2 VBG O2 Saturation VBG Base Excess Hemoglobin Hematocrit Potassium 3.7 Glucose 229 H Ionized Calcium FiO2 Sodium 142 Chloride 110 H Carbon Dioxide 24 Anion Gap 11.7 BUN 13 Creatinine 1.40 H GFR Calculation 71 BUN/Creatinine Ratio 9.00 Calculated Osmolality 289.1 Calcium 8.2 L Venous Ioniz Calcium Magnesium 2.2 Total Bilirubin 1.20 H Direct Bilirubin AST 62 H ALT 65 H Alkaline Phosphatase 62 Total Creatine Kinase 182 CK-MB (CK-2) 15.0 H CK and CKMB Interp 8.2 Troponin I 2.300 H Total Protein 5.5 L Albumin 3.5 Globulin 2.0 L Albumin/Globulin Ratio 1.7 Urine Color Urine Appearance Urine pH Ur Specific [place] Urine Protein Urine Glucose (UA) Urine Ketones Urine Blood Urine Nitrate Urine Bilirubin Urine Urobilinogen Urine Leukocytes Urine RBC Urine WBC Ur Culture Indicated? Blood Type Antibody Screen Crossmatch 06/29/16 06/29/16 06/29/16 12:05 14:10 14:19 WBC RBC Hgb Hct MCV MCH MCHC RDW Plt Count MPV Neut % (Auto) Lymph % (Auto) [place] % (Auto) Eos % (Auto) Baso % (Auto) Neut # (Auto) Lymph # (Auto) [place] # (Auto) Eos # (Auto) Baso # (Auto) Total Counted Immature Gran % Nucleated RBC % Immature Gran # Segmented Neutrophils Lymphocytes Monocytes Nucleated RBCs # Platelet Estimate Hypochromasia Microcytosis INR 1.2 PT Patient/Control Mix 12.7 Circ Anticoag PTT 29.4 Patient Temperature ABG pH 7.367 7.381 ABG pH at Pt Temp ABG pCO2 39.7 41.3 ABG pCO2 at Pt Temp ABG pO2 126.8 H 116.4 H ABG pO2 at Pt Temp ABG HCO3 22.3 23.9 ABG Total CO2 23.5 25.2 ABG O2 Saturation 97.8 97.3 ABG Base Excess -2.8 L -1.1 ABG Sodium VBG pH VBG pCO2 VBG pO2 VBG HCO3 VBG Total CO2 VBG O2 Saturation VBG Base Excess Hemoglobin 12.5 L 10.6 L Hematocrit 37.0 L 31.0 L Potassium 3.5 4.6 Glucose 220 H 212 H Ionized Calcium FiO2 Sodium Chloride Carbon Dioxide Anion Gap BUN Creatinine GFR Calculation BUN/Creatinine Ratio Calculated Osmolality Calcium Venous Ioniz Calcium Magnesium Total Bilirubin Direct Bilirubin AST ALT Alkaline Phosphatase Total Creatine Kinase CK-MB (CK-2) CK and CKMB Interp Troponin I Total Protein Albumin Globulin Albumin/Globulin Ratio Urine Color Urine Appearance Urine pH Ur Specific [place] Urine Protein Urine Glucose (UA) Urine Ketones Urine Blood Urine Nitrate Urine Bilirubin Urine Urobilinogen Urine Leukocytes Urine RBC Urine WBC Ur Culture Indicated? Blood Type Antibody Screen Crossmatch 06/29/16 06/29/16 06/29/16 17:26 18:22 20:01 WBC RBC Hgb Hct MCV MCH MCHC RDW Plt Count MPV Neut % (Auto) Lymph % (Auto) [place] % (Auto) Eos % (Auto) Baso % (Auto) Neut # (Auto) Lymph # (Auto) [place] # (Auto) Eos # (Auto) Baso # (Auto) Total Counted Immature Gran % Nucleated RBC % Immature Gran # Segmented Neutrophils Lymphocytes Monocytes Nucleated RBCs # Platelet Estimate Hypochromasia Microcytosis INR PT Patient/Control Mix Circ Anticoag PTT Patient Temperature ABG pH 7.283 L 7.324 L ABG pH at Pt Temp ABG pCO2 49.2 H 46.4 ABG pCO2 at Pt Temp ABG pO2 128.0 H 140.4 H ABG pO2 at Pt Temp ABG HCO3 21.3 23.6 ABG Total CO2 21.2 L 25.0 ABG O2 Saturation 98.6 97.8 ABG Base Excess -3.8 L -2.5 ABG Sodium VBG pH VBG pCO2 VBG pO2 VBG HCO3 VBG Total CO2 VBG O2 Saturation VBG Base Excess Hemoglobin 11.0 L 11.0 L Hematocrit 33.8 L 32.0 L Potassium 3.5 4.1 Glucose 161 H 137 H Ionized Calcium FiO2 Sodium Chloride Carbon Dioxide Anion Gap BUN Creatinine GFR Calculation BUN/Creatinine Ratio Calculated Osmolality Calcium Venous Ioniz Calcium Magnesium Total Bilirubin Direct Bilirubin AST ALT Alkaline Phosphatase Total Creatine Kinase 419 H D CK-MB (CK-2) 43.4 H D CK and CKMB Interp 10.4 Troponin I 7.410 H D Total Protein Albumin Globulin Albumin/Globulin Ratio Urine Color Urine Appearance Urine pH Ur Specific [place] Urine Protein Urine Glucose (UA) Urine Ketones Urine Blood Urine Nitrate Urine Bilirubin Urine Urobilinogen Urine Leukocytes Urine RBC Urine WBC Ur Culture Indicated? Blood Type Antibody Screen Crossmatch 06/29/16 06/30/16 06/30/16 20:02 03:15 03:15 WBC 13.6 H D RBC 3.33 L D Hgb 9.4 L D Hct 28.0 L MCV 84.1 L MCH 28 MCHC 33.6 RDW 12.5 Plt Count 148 MPV 10.5 Neut % (Auto) 88.1 H Lymph % (Auto) 4.5 L [place] % (Auto) 6.8 Eos % (Auto) 0.1 Baso % (Auto) 0.0 Neut # (Auto) 12.0 H Lymph # (Auto) 0.6 L [place] # (Auto) 0.9 H Eos # (Auto) 0.0 Baso # (Auto) 0.0 Total Counted 100 Immature Gran % 0.5 Nucleated RBC % 0.0 Immature Gran # 0.07 Segmented Neutrophils 89 H Lymphocytes 7 L Monocytes 4 Nucleated RBCs # 0.00 Platelet Estimate Adequate Hypochromasia Slight Microcytosis Slight INR PT Patient/Control Mix Circ Anticoag PTT Patient Temperature ABG pH 7.323 L ABG pH at Pt Temp ABG pCO2 45.6 ABG pCO2 at Pt Temp ABG pO2 134.8 H ABG pO2 at Pt Temp ABG HCO3 23.1 ABG Total CO2 24.5 ABG O2 Saturation 97.8 ABG Base Excess -3.0 L ABG Sodium VBG pH VBG pCO2 VBG pO2 VBG HCO3 VBG Total CO2 VBG O2 Saturation VBG Base Excess Hemoglobin 11.2 L Hematocrit 33.0 L Potassium 3.7 Glucose 135 H Ionized Calcium FiO2 Sodium Chloride Carbon Dioxide Anion Gap BUN Creatinine GFR Calculation BUN/Creatinine Ratio Calculated Osmolality Calcium Venous Ioniz Calcium Magnesium Total Bilirubin Direct Bilirubin AST ALT Alkaline Phosphatase Total Creatine Kinase 870 H D CK-MB (CK-2) 111.7 H D CK and CKMB Interp 12.8 Troponin I 15.600 H D Total Protein Albumin Globulin Albumin/Globulin Ratio Urine Color Urine Appearance Urine pH Ur Specific [place] Urine Protein Urine Glucose (UA) Urine Ketones Urine Blood Urine Nitrate Urine Bilirubin Urine Urobilinogen Urine Leukocytes Urine RBC Urine WBC Ur Culture Indicated? Blood Type Antibody Screen Crossmatch 06/30/16 06/30/16 06/30/16 03:15 03:15 05:10 WBC RBC Hgb Hct MCV MCH MCHC RDW Plt Count MPV Neut % (Auto) Lymph % (Auto) [place] % (Auto) Eos % (Auto) Baso % (Auto) Neut # (Auto) Lymph # (Auto) [place] # (Auto) Eos # (Auto) Baso # (Auto) Total Counted Immature Gran % Nucleated RBC % Immature Gran # Segmented Neutrophils Lymphocytes Monocytes Nucleated RBCs # Platelet Estimate Hypochromasia Microcytosis INR PT Patient/Control Mix Circ Anticoag PTT Patient Temperature ABG pH 7.357 7.377 ABG pH at Pt Temp ABG pCO2 43.3 40.0 ABG pCO2 at Pt Temp ABG pO2 133.0 H 136.0 H ABG pO2 at Pt Temp ABG HCO3 23.4 23.2 ABG Total CO2 22.3 L 21.4 L ABG O2 Saturation 98.7 98.8 ABG Base Excess -1.2 -1.5 ABG Sodium VBG pH VBG pCO2 VBG pO2 VBG HCO3 VBG Total CO2 VBG O2 Saturation VBG Base Excess Hemoglobin 9.6 L 10.2 L Hematocrit 29.6 L 31.4 L Potassium 3.8 3.7 4.0 Glucose 120 H 125 H 137 H Ionized Calcium FiO2 Sodium 147 H Chloride 113 H Carbon Dioxide 25 Anion Gap 12.8 BUN 16 Creatinine 1.30 GFR Calculation 78 BUN/Creatinine Ratio 12.00 Calculated Osmolality 293.4 Calcium 7.7 L Venous Ioniz Calcium Magnesium 1.8 Total Bilirubin 0.80 Direct Bilirubin 0.20 AST 133 H ALT 70 H Alkaline Phosphatase 37 L Total Creatine Kinase CK-MB (CK-2) CK and CKMB Interp Troponin I Total Protein 5.6 L Albumin 4.0 Globulin 1.6 L Albumin/Globulin Ratio 2.5 H Urine Color Urine Appearance Urine pH Ur Specific [place] Urine Protein Urine Glucose (UA) Urine Ketones Urine Blood Urine Nitrate Urine Bilirubin Urine Urobilinogen Urine Leukocytes Urine RBC Urine WBC Ur Culture Indicated? Blood Type Antibody Screen Crossmatch 06/30/16 06:10 WBC RBC Hgb Hct MCV MCH MCHC RDW Plt Count MPV Neut % (Auto) Lymph % (Auto) [place] % (Auto) Eos % (Auto) Baso % (Auto) Neut # (Auto) Lymph # (Auto) [place] # (Auto) Eos # (Auto) Baso # (Auto) Total Counted Immature Gran % Nucleated RBC % Immature Gran # Segmented Neutrophils Lymphocytes Monocytes Nucleated RBCs # Platelet Estimate Hypochromasia Microcytosis INR PT Patient/Control Mix Circ Anticoag PTT Patient Temperature ABG pH 7.376 ABG pH at Pt Temp ABG pCO2 40.8 ABG pCO2 at Pt Temp ABG pO2 116.0 H ABG pO2 at Pt Temp ABG HCO3 23.5 ABG Total CO2 21.8 L ABG O2 Saturation 98.2 ABG Base Excess -1.1 ABG Sodium VBG pH VBG pCO2 VBG pO2 VBG HCO3 VBG Total CO2 VBG O2 Saturation VBG Base Excess Hemoglobin 10.1 L Hematocrit 31.3 L Potassium 4.2 Glucose 134 H Ionized Calcium FiO2 Sodium Chloride Carbon Dioxide Anion Gap BUN Creatinine GFR Calculation BUN/Creatinine Ratio Calculated Osmolality Calcium Venous Ioniz Calcium Magnesium Total Bilirubin Direct Bilirubin AST ALT Alkaline Phosphatase Total Creatine Kinase CK-MB (CK-2) CK and CKMB Interp Troponin I Total Protein Albumin Globulin Albumin/Globulin Ratio Urine Color Urine Appearance Urine pH Ur Specific [place] Urine Protein Urine Glucose (UA) Urine Ketones Urine Blood Urine Nitrate Urine Bilirubin Urine Urobilinogen Urine Leukocytes Urine RBC Urine WBC Ur Culture Indicated? Blood Type Antibody Screen Crossmatch - Impressions Impressions: Telemetry with normal sinus rhythm. There is no multiple dysrhythmias documented on the chart. Quality Measures - VTE Contraindication to Pharmacological VTE Prophylaxis: Already on Theraputic Agent , No Prophylaxis Needed
--- NOTE | 2016-06-30 07:45 | EKG Report ---
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
--- NOTE | 2016-06-30 08:00 | Anesthesia ---
Anesthesia Post OP - Post Ansesthetic Evaluation Patient seen in post op: Yes Resp: within normal limits CV: within normal limits Mental: within normal limits Temp: within normal limits [id number]-[id number]: within normal limits Nausea and Vomiting: within normal limits Pain: within normal limits
--- NOTE | 2016-06-30 08:03 | Cardiothoracic Progress Note ---
Cardiothoracic Subjective Interval history: Patient is awake alert and extubated. Vital signs are stable through the night and he is breathing comfortably this morning and his blood gases are good after extubation. He is in normal sinus rhythm. Urine output has been good and his creatinine is close to baseline. He did have moderate troponin elevation to 15 but his hemodynamics have been good with a cardiac output this morning of 6.8. Chest tube drainage is minimal and there was a question of a small air leak but I do not see this at present and we may be able to remove his chest tubes later this morning. I think he can be transferred to telemetry. Exam (Progress Note) - Constitutional Vitals: Period Temp Pulse Resp BP Sys/Jackson Pulse Ox Last 24 Hr 97 F-99.3 F 79-92 9-15 76-127/37-70 97-100 Result/EKG - Labs CBC & BMP: 06/30/16 03:15 06/30/16 03:15 Labs: Laboratory Results - last 24 hr 06/28/16 06/29/16 06/29/16 06:50 09:13 09:45 WBC RBC Hgb Hct MCV MCH MCHC RDW Plt Count MPV Neut % (Auto) Lymph % (Auto) [place] % (Auto) Eos % (Auto) Baso % (Auto) Neut # (Auto) Lymph # (Auto) [place] # (Auto) Eos # (Auto) Baso # (Auto) Total Counted Immature Gran % Nucleated RBC % Immature Gran # Segmented Neutrophils Lymphocytes Monocytes Nucleated RBCs # Platelet Estimate Hypochromasia Microcytosis INR PT Patient/Control Mix Circ Anticoag PTT Patient Temperature 34 32 ABG pH ABG pH at Pt Temp 7.407 7.425 ABG pCO2 ABG pCO2 at Pt Temp 36.6 33.8 ABG pO2 ABG pO2 at Pt Temp 34.2 31.5 ABG HCO3 ABG Total CO2 ABG O2 Saturation ABG Base Excess ABG Sodium 133 L 135 VBG pH 7.364 7.354 VBG pCO2 42.3 43.0 VBG pO2 42.1 H 44.6 H VBG HCO3 23.1 L 22.7 L VBG Total CO2 22.3 21.8 VBG O2 Saturation 77.1 78.9 VBG Base Excess -1.2 L -1.6 L Hemoglobin 9.4 L D 10.5 L Hematocrit 29.0 L 32.6 L Potassium 5.3 H 5.5 H Glucose 349 H 283 H Ionized Calcium FiO2 80.00 80.00 Sodium Chloride Carbon Dioxide Anion Gap BUN Creatinine GFR Calculation BUN/Creatinine Ratio Calculated Osmolality Calcium Venous Ioniz Calcium 0.97 L 1.05 L Magnesium Total Bilirubin Direct Bilirubin AST ALT Alkaline Phosphatase Total Creatine Kinase CK-MB (CK-2) CK and CKMB Interp Troponin I Total Protein Albumin Globulin Albumin/Globulin Ratio Blood Type O POSITIVE Antibody Screen Negative Crossmatch See Detail 06/29/16 06/29/16 06/29/16 10:12 10:41 10:44 WBC RBC Hgb Hct MCV MCH MCHC RDW Plt Count 109 L MPV Neut % (Auto) Lymph % (Auto) [place] % (Auto) Eos % (Auto) Baso % (Auto) Neut # (Auto) Lymph # (Auto) [place] # (Auto) Eos # (Auto) Baso # (Auto) Total Counted Immature Gran % Nucleated RBC % Immature Gran # Segmented Neutrophils Lymphocytes Monocytes Nucleated RBCs # Platelet Estimate Hypochromasia Microcytosis INR PT Patient/Control Mix Circ Anticoag PTT Patient Temperature 36 37 ABG pH 7.357 ABG pH at Pt Temp 7.353 7.357 ABG pCO2 38.1 ABG pCO2 at Pt Temp 41.0 38.1 ABG pO2 234.0 H ABG pO2 at Pt Temp 35.8 234.0 ABG HCO3 21.4 ABG Total CO2 19.1 L ABG O2 Saturation 99.2 ABG Base Excess -3.7 L ABG Sodium 132 L 135 VBG pH 7.339 VBG pCO2 43.0 VBG pO2 38.4 VBG HCO3 21.8 L VBG Total CO2 21.2 VBG O2 Saturation 69.7 VBG Base Excess -2.6 L Hemoglobin 10.5 L 11.5 L Hematocrit 32.3 L 35.5 L Potassium 6.1 H* 5.0 Glucose 281 H 264 H Ionized Calcium 1.24 FiO2 80.00 Sodium Chloride Carbon Dioxide Anion Gap BUN Creatinine GFR Calculation BUN/Creatinine Ratio Calculated Osmolality Calcium Venous Ioniz Calcium 1.05 L Magnesium Total Bilirubin Direct Bilirubin AST ALT Alkaline Phosphatase Total Creatine Kinase CK-MB (CK-2) CK and CKMB Interp Troponin I Total Protein Albumin Globulin Albumin/Globulin Ratio Blood Type Antibody Screen Crossmatch 06/29/16 06/29/16 06/29/16 12:00 12:00 12:00 WBC 7.6 D RBC 4.26 Hgb 11.8 L D Hct 35.8 L MCV 84.0 L MCH 28 MCHC 33.0 RDW 12.4 Plt Count 143 D MPV 10.5 Neut % (Auto) 83.0 H Lymph % (Auto) 9.3 L [place] % (Auto) 4.5 Eos % (Auto) 2.2 Baso % (Auto) 0.3 Neut # (Auto) 6.3 Lymph # (Auto) 0.7 L [place] # (Auto) 0.3 Eos # (Auto) 0.2 Baso # (Auto) 0.0 Total Counted Immature Gran % 0.7 Nucleated RBC % 0.0 Immature Gran # 0.05 Segmented Neutrophils Lymphocytes Monocytes Nucleated RBCs # 0.00 Platelet Estimate Hypochromasia Microcytosis INR PT Patient/Control Mix Circ Anticoag PTT Patient Temperature ABG pH ABG pH at Pt Temp ABG pCO2 ABG pCO2 at Pt Temp ABG pO2 ABG pO2 at Pt Temp ABG HCO3 ABG Total CO2 ABG O2 Saturation ABG Base Excess ABG Sodium VBG pH VBG pCO2 VBG pO2 VBG HCO3 VBG Total CO2 VBG O2 Saturation VBG Base Excess Hemoglobin Hematocrit Potassium 3.7 Glucose 229 H Ionized Calcium FiO2 Sodium 142 Chloride 110 H Carbon Dioxide 24 Anion Gap 11.7 BUN 13 Creatinine 1.40 H GFR Calculation 71 BUN/Creatinine Ratio 9.00 Calculated Osmolality 289.1 Calcium 8.2 L Venous Ioniz Calcium Magnesium 2.2 Total Bilirubin 1.20 H Direct Bilirubin AST 62 H ALT 65 H Alkaline Phosphatase 62 Total Creatine Kinase 182 CK-MB (CK-2) 15.0 H CK and CKMB Interp 8.2 Troponin I 2.300 H Total Protein 5.5 L Albumin 3.5 Globulin 2.0 L Albumin/Globulin Ratio 1.7 Blood Type Antibody Screen Crossmatch 06/29/16 06/29/16 06/29/16 12:05 14:10 14:19 WBC RBC Hgb Hct MCV MCH MCHC RDW Plt Count MPV Neut % (Auto) Lymph % (Auto) [place] % (Auto) Eos % (Auto) Baso % (Auto) Neut # (Auto) Lymph # (Auto) [place] # (Auto) Eos # (Auto) Baso # (Auto) Total Counted Immature Gran % Nucleated RBC % Immature Gran # Segmented Neutrophils Lymphocytes Monocytes Nucleated RBCs # Platelet Estimate Hypochromasia Microcytosis INR 1.2 PT Patient/Control Mix 12.7 Circ Anticoag PTT 29.4 Patient Temperature ABG pH 7.367 7.381 ABG pH at Pt Temp ABG pCO2 39.7 41.3 ABG pCO2 at Pt Temp ABG pO2 126.8 H 116.4 H ABG pO2 at Pt Temp ABG HCO3 22.3 23.9 ABG Total CO2 23.5 25.2 ABG O2 Saturation 97.8 97.3 ABG Base Excess -2.8 L -1.1 ABG Sodium VBG pH VBG pCO2 VBG pO2 VBG HCO3 VBG Total CO2 VBG O2 Saturation VBG Base Excess Hemoglobin 12.5 L 10.6 L Hematocrit 37.0 L 31.0 L Potassium 3.5 4.6 Glucose 220 H 212 H Ionized Calcium FiO2 Sodium Chloride Carbon Dioxide Anion Gap BUN Creatinine GFR Calculation BUN/Creatinine Ratio Calculated Osmolality Calcium Venous Ioniz Calcium Magnesium Total Bilirubin Direct Bilirubin AST ALT Alkaline Phosphatase Total Creatine Kinase CK-MB (CK-2) CK and CKMB Interp Troponin I Total Protein Albumin Globulin Albumin/Globulin Ratio Blood Type Antibody Screen Crossmatch 06/29/16 06/29/16 06/29/16 17:26 18:22 20:01 WBC RBC Hgb Hct MCV MCH MCHC RDW Plt Count MPV Neut % (Auto) Lymph % (Auto) [place] % (Auto) Eos % (Auto) Baso % (Auto) Neut # (Auto) Lymph # (Auto) [place] # (Auto) Eos # (Auto) Baso # (Auto) Total Counted Immature Gran % Nucleated RBC % Immature Gran # Segmented Neutrophils Lymphocytes Monocytes Nucleated RBCs # Platelet Estimate Hypochromasia Microcytosis INR PT Patient/Control Mix Circ Anticoag PTT Patient Temperature ABG pH 7.283 L 7.324 L ABG pH at Pt Temp ABG pCO2 49.2 H 46.4 ABG pCO2 at Pt Temp ABG pO2 128.0 H 140.4 H ABG pO2 at Pt Temp ABG HCO3 21.3 23.6 ABG Total CO2 21.2 L 25.0 ABG O2 Saturation 98.6 97.8 ABG Base Excess -3.8 L -2.5 ABG Sodium VBG pH VBG pCO2 VBG pO2 VBG HCO3 VBG Total CO2 VBG O2 Saturation VBG Base Excess Hemoglobin 11.0 L 11.0 L Hematocrit 33.8 L 32.0 L Potassium 3.5 4.1 Glucose 161 H 137 H Ionized Calcium FiO2 Sodium Chloride Carbon Dioxide Anion Gap BUN Creatinine GFR Calculation BUN/Creatinine Ratio Calculated Osmolality Calcium Venous Ioniz Calcium Magnesium Total Bilirubin Direct Bilirubin AST ALT Alkaline Phosphatase Total Creatine Kinase 419 H D CK-MB (CK-2) 43.4 H D CK and CKMB Interp 10.4 Troponin I 7.410 H D Total Protein Albumin Globulin Albumin/Globulin Ratio Blood Type Antibody Screen Crossmatch 06/29/16 06/30/16 06/30/16 20:02 03:15 03:15 WBC 13.6 H D RBC 3.33 L D Hgb 9.4 L D Hct 28.0 L MCV 84.1 L MCH 28 MCHC 33.6 RDW 12.5 Plt Count 148 MPV 10.5 Neut % (Auto) 88.1 H Lymph % (Auto) 4.5 L [place] % (Auto) 6.8 Eos % (Auto) 0.1 Baso % (Auto) 0.0 Neut # (Auto) 12.0 H Lymph # (Auto) 0.6 L [place] # (Auto) 0.9 H Eos # (Auto) 0.0 Baso # (Auto) 0.0 Total Counted 100 Immature Gran % 0.5 Nucleated RBC % 0.0 Immature Gran # 0.07 Segmented Neutrophils 89 H Lymphocytes 7 L Monocytes 4 Nucleated RBCs # 0.00 Platelet Estimate Adequate Hypochromasia Slight Microcytosis Slight INR PT Patient/Control Mix Circ Anticoag PTT Patient Temperature ABG pH 7.323 L ABG pH at Pt Temp ABG pCO2 45.6 ABG pCO2 at Pt Temp ABG pO2 134.8 H ABG pO2 at Pt Temp ABG HCO3 23.1 ABG Total CO2 24.5 ABG O2 Saturation 97.8 ABG Base Excess -3.0 L ABG Sodium VBG pH VBG pCO2 VBG pO2 VBG HCO3 VBG Total CO2 VBG O2 Saturation VBG Base Excess Hemoglobin 11.2 L Hematocrit 33.0 L Potassium 3.7 Glucose 135 H Ionized Calcium FiO2 Sodium Chloride Carbon Dioxide Anion Gap BUN Creatinine GFR Calculation BUN/Creatinine Ratio Calculated Osmolality Calcium Venous Ioniz Calcium Magnesium Total Bilirubin Direct Bilirubin AST ALT Alkaline Phosphatase Total Creatine Kinase 870 H D CK-MB (CK-2) 111.7 H D CK and CKMB Interp 12.8 Troponin I 15.600 H D Total Protein Albumin Globulin Albumin/Globulin Ratio Blood Type Antibody Screen Crossmatch 06/30/16 06/30/16 06/30/16 03:15 03:15 05:10 WBC RBC Hgb Hct MCV MCH MCHC RDW Plt Count MPV Neut % (Auto) Lymph % (Auto) [place] % (Auto) Eos % (Auto) Baso % (Auto) Neut # (Auto) Lymph # (Auto) [place] # (Auto) Eos # (Auto) Baso # (Auto) Total Counted Immature Gran % Nucleated RBC % Immature Gran # Segmented Neutrophils Lymphocytes Monocytes Nucleated RBCs # Platelet Estimate Hypochromasia Microcytosis INR PT Patient/Control Mix Circ Anticoag PTT Patient Temperature ABG pH 7.357 7.377 ABG pH at Pt Temp ABG pCO2 43.3 40.0 ABG pCO2 at Pt Temp ABG pO2 133.0 H 136.0 H ABG pO2 at Pt Temp ABG HCO3 23.4 23.2 ABG Total CO2 22.3 L 21.4 L ABG O2 Saturation 98.7 98.8 ABG Base Excess -1.2 -1.5 ABG Sodium VBG pH VBG pCO2 VBG pO2 VBG HCO3 VBG Total CO2 VBG O2 Saturation VBG Base Excess Hemoglobin 9.6 L 10.2 L Hematocrit 29.6 L 31.4 L Potassium 3.8 3.7 4.0 Glucose 120 H 125 H 137 H Ionized Calcium FiO2 Sodium 147 H Chloride 113 H Carbon Dioxide 25 Anion Gap 12.8 BUN 16 Creatinine 1.30 GFR Calculation 78 BUN/Creatinine Ratio 12.00 Calculated Osmolality 293.4 Calcium 7.7 L Venous Ioniz Calcium Magnesium 1.8 Total Bilirubin 0.80 Direct Bilirubin 0.20 AST 133 H ALT 70 H Alkaline Phosphatase 37 L Total Creatine Kinase CK-MB (CK-2) CK and CKMB Interp Troponin I Total Protein 5.6 L Albumin 4.0 Globulin 1.6 L Albumin/Globulin Ratio 2.5 H Blood Type Antibody Screen Crossmatch 06/30/16 06:10 WBC RBC Hgb Hct MCV MCH MCHC RDW Plt Count MPV Neut % (Auto) Lymph % (Auto) [place] % (Auto) Eos % (Auto) Baso % (Auto) Neut # (Auto) Lymph # (Auto) [place] # (Auto) Eos # (Auto) Baso # (Auto) Total Counted Immature Gran % Nucleated RBC % Immature Gran # Segmented Neutrophils Lymphocytes Monocytes Nucleated RBCs # Platelet Estimate Hypochromasia Microcytosis INR PT Patient/Control Mix Circ Anticoag PTT Patient Temperature ABG pH 7.376 ABG pH at Pt Temp ABG pCO2 40.8 ABG pCO2 at Pt Temp ABG pO2 116.0 H ABG pO2 at Pt Temp ABG HCO3 23.5 ABG Total CO2 21.8 L ABG O2 Saturation 98.2 ABG Base Excess -1.1 ABG Sodium VBG pH VBG pCO2 VBG pO2 VBG HCO3 VBG Total CO2 VBG O2 Saturation VBG Base Excess Hemoglobin 10.1 L Hematocrit 31.3 L Potassium 4.2 Glucose 134 H Ionized Calcium FiO2 Sodium Chloride Carbon Dioxide Anion Gap BUN Creatinine GFR Calculation BUN/Creatinine Ratio Calculated Osmolality Calcium Venous Ioniz Calcium Magnesium Total Bilirubin Direct Bilirubin AST ALT Alkaline Phosphatase Total Creatine Kinase CK-MB (CK-2) CK and CKMB Interp Troponin I Total Protein Albumin Globulin Albumin/Globulin Ratio Blood Type Antibody Screen Crossmatch Quality Measures - VTE Contraindication to Pharmacological VTE Prophylaxis: Already on Theraputic Agent , No Prophylaxis Needed
[2016-06-30] MEDS ORDERED: diphenhydrAMINE CAP 25 MG CAPSULE PO ONE (08:57)
[2016-06-30] MEDS ORDERED: ALUMINUM/MAGNES/SIMETH MAX STR 30 ML UDCUP PO PRN (09:00)
[2016-06-30] MEDS: MORPHINE 2 MG/1 ML SYRINGE IV PRN ×2 (09:00→13:40)
[2016-06-30] MEDS ORDERED: POTASSIUM CHLORIDE 20 MEQ TABLET PO PRN (09:00)
[2016-06-30] MEDS ORDERED: MAGNESIUM HYDROXIDE SUSP 30 ML UDCUP PO PRN (09:00)
[2016-06-30] MEDS ORDERED: DEXTROSE 50% 25 GM/50 ML VIAL IV PRN ×2 (09:00)
[2016-06-30] MEDS ORDERED: ZALEPLON 5 MG CAPSULE PO PRN (09:00)
[2016-06-30] MEDS ORDERED: ONDANSETRON 4 MG/2 ML VIAL IV PRN (09:00)
[2016-06-30] MEDS ORDERED: MAGNESIUM SULF RIDER 4 GM in PREMIX 1 EACH IV PRN (09:00)
[2016-06-30] MEDS ORDERED: ACETAMINOPHEN 325 MG TABLET PO PRN (09:00)
[2016-06-30] MEDS ORDERED: MAGNESIUM SULF RIDER 2 GM in PREMIX 1 EACH IV PRN (09:00)
[2016-06-30] MEDS ORDERED: MORPHINE 2 MG/1 ML SYRINGE IV PRN (09:00)
[2016-06-30] MEDS ORDERED: GLUCAGON 1 MG VIAL IM PRN ×2 (09:00)
[2016-06-30] MEDS: CHLORHEXIDINE 0.12% ORAL RINSE 60 ML BOTTLE SWISH/SPIT SCH ×3 (09:03→21:38)
[2016-06-30] MEDS: PANTOPRAZOLE 40 MG TABLET PO SCH (09:47)
[2016-06-30] MEDS: ASPIRIN EC 325 MG TABLET PO SCH (09:47)
[2016-06-30] MEDS: sitaGLIPtin 100 MG TABLET PO SCH (09:47)
[2016-06-30] MEDS: FERROUS SULFATE 325 MG TABLET PO SCH (09:47)
[2016-06-30] MEDS: URSODIOL 300 MG CAPSULE PO SCH ×2 (09:48→21:37)
[2016-06-30] MEDS: DOCUSATE SODIUM 100 MG CAPSULE PO SCH (09:48)
[2016-06-30] MEDS: SODIUM CHLOR 0.45% KCL 20 MEQ 20 MEQ/1,000 ML BAG IV SCH (09:49)
--- NOTE | 2016-06-30 10:11 | XRay Report ---
XR chest 1V portable Indication: Chest tube removal, pneumothorax Comparison: 29 June 2016 Findings: The heart and mediastinum are stable in size and configuration. Endotracheal and NG tube have been removed. Chest tube is been removed. No pneumothorax is seen. [place]-Tra catheter is retracted, tip is at the right atrial superior vena cava junction level. The pulmonary vascularity is normal in caliber. Left mid lung density is present similar to previous exam. No other lung infiltrates, effusions, pneumothorax or other abnormality is demonstrated. Impression: Interval removal of support structures as described above. No other significant changes. PROCEDURE INTERPRETED AT [facility] DEPARTMENT OF RADIOLOGY Final Report Signed by: Dr. Candido Brooks
[2016-06-30] MEDS: INSULIN REGULAR 100 UNIT/ML SUBCUT SCH ×5 (11:06→22:47)
[2016-06-30] MEDS: SODIUM CHLORIDE 0.45% 1,000 ML IV SCH ×2 (12:03→12:04)
[2016-06-30 13:38] LABS: CKMB % 9.1 %
[2016-06-30 13:42] LABS: Troponin I Only 23.8 NG/ML (0.00-0.045)
[2016-06-30] MEDS: CARVEDILOL 6.25 MG TABLET PO SCH (17:28)
[2016-06-30] MEDS: oxyCODONE/ACETAMINOPHEN 5-325 MG TABLET PO PRN (18:14)
[2016-06-30] MEDS: ATORVASTATIN 40 MG TABLET PO SCH (21:38)
[2016-07-01] MEDS: oxyCODONE/ACETAMINOPHEN 5-325 MG TABLET PO PRN (01:41)
[2016-07-01] MEDS: INSULIN REGULAR 100 UNIT/ML SUBCUT SCH ×8 (03:04→22:11)
[2016-07-01] MEDS ORDERED: FUROSEMIDE 40 MG/4 ML VIAL IV ONE (06:00)
--- NOTE | 2016-07-01 06:14 | Cardiothoracic Progress Note ---
Cardiothoracic Subjective Interval history: Patient is awake alert and extubated and has been transferred to telemetry. He had a comfortable night but has a fair amount of chest wall soreness. Breathing has been good and his vital signs have been stable. We will try to increase his activities gradually today according to routine postoperative protocol. Exam (Progress Note) - Constitutional Vitals: Period Temp Pulse Resp BP Sys/Jackson Pulse Ox Last 24 Hr 97.7 F-100 F 80-93 13-20 90-111/49-69 94-98 Result/EKG - Labs CBC & BMP: 06/30/16 03:15 06/30/16 03:15 Labs: Laboratory Results - last 24 hr 06/29/16 06/29/16 06/29/16 15:29 16:50 17:38 ABG pH ABG pCO2 ABG pO2 ABG HCO3 ABG Total CO2 ABG O2 Saturation ABG Base Excess Hemoglobin Hematocrit Potassium Glucose POC Glucose 221 H 164 H 148 H Total Creatine Kinase CK-MB (CK-2) CK and CKMB Interp Troponin I 06/29/16 06/29/16 06/29/16 19:27 21:15 22:11 ABG pH ABG pCO2 ABG pO2 ABG HCO3 ABG Total CO2 ABG O2 Saturation ABG Base Excess Hemoglobin Hematocrit Potassium Glucose POC Glucose 137 H 107 H 129 H Total Creatine Kinase CK-MB (CK-2) CK and CKMB Interp Troponin I 06/29/16 06/30/16 06/30/16 23:06 00:23 01:14 ABG pH ABG pCO2 ABG pO2 ABG HCO3 ABG Total CO2 ABG O2 Saturation ABG Base Excess Hemoglobin Hematocrit Potassium Glucose POC Glucose 122 H 138 H 124 H Total Creatine Kinase CK-MB (CK-2) CK and CKMB Interp Troponin I 06/30/16 06/30/16 06/30/16 02:03 04:08 06:10 ABG pH 7.376 ABG pCO2 40.8 ABG pO2 116.0 H ABG HCO3 23.5 ABG Total CO2 21.8 L ABG O2 Saturation 98.2 ABG Base Excess -1.1 Hemoglobin 10.1 L Hematocrit 31.3 L Potassium 4.2 Glucose 134 H POC Glucose 123 H 107 H Total Creatine Kinase CK-MB (CK-2) CK and CKMB Interp Troponin I 06/30/16 06/30/16 06/30/16 06:44 07:42 10:35 ABG pH ABG pCO2 ABG pO2 ABG HCO3 ABG Total CO2 ABG O2 Saturation ABG Base Excess Hemoglobin Hematocrit Potassium Glucose POC Glucose 131 H 131 H 233 H Total Creatine Kinase CK-MB (CK-2) CK and CKMB Interp Troponin I 06/30/16 06/30/16 06/30/16 12:30 12:32 14:52 ABG pH ABG pCO2 ABG pO2 ABG HCO3 ABG Total CO2 ABG O2 Saturation ABG Base Excess Hemoglobin Hematocrit Potassium Glucose POC Glucose 232 H 291 H Total Creatine Kinase 1545 H D CK-MB (CK-2) 140.7 H D CK and CKMB Interp 9.1 Troponin I 23.800 H D 06/30/16 06/30/16 07/01/16 16:00 20:21 01:17 ABG pH ABG pCO2 ABG pO2 ABG HCO3 ABG Total CO2 ABG O2 Saturation ABG Base Excess Hemoglobin Hematocrit Potassium Glucose POC Glucose 266 H 161 H 208 H Total Creatine Kinase CK-MB (CK-2) CK and CKMB Interp Troponin I 07/01/16 06:08 ABG pH ABG pCO2 ABG pO2 ABG HCO3 ABG Total CO2 ABG O2 Saturation ABG Base Excess Hemoglobin Hematocrit Potassium Glucose POC Glucose 218 H Total Creatine Kinase CK-MB (CK-2) CK and CKMB Interp Troponin I Quality Measures - VTE Contraindication to Pharmacological VTE Prophylaxis: Already on Theraputic Agent , No Prophylaxis Needed Specialty Discharge - Follow Up or Referrals
[2016-07-01 07:18] LABS: Basophils % 0.1 % (0.0-0.8); Eosinophils % 0.1 % (0.00-10.9); Hematocrit 28.8 VOL% (42.0-52.0); Hemoglobin 9.1 GM/DL (14.0-18.0); Immature Granulocytes % 0.7 %; Immature Granulocytes Absolute 0.07 #; Lymphocytes # 0.5 10*3/uL (1.4-4.0); Mean Corpuscular HGB Conc 31.6 GM/DL (32-36); Mean Corpuscular Hemoglobin 27 PG (27-34); Mean Corpuscular Volume 86.5 FL (87-102); Mean Platelet Volume 11.4 FL (9.6-12.0); Monocytes # 0.8 10*3/uL (0.11-0.8); Monocytes % 8.5 % (1.7-12.7); Neutrophils # 8.3 10*3/uL (1.4-7.4); Neutrophils % 85.6 % (38.7-73.9); Platelet Count 116 T/CUMM (130-400); Red Blood Count 3.33 MC/CUMM (3.8-5.5); Red Cell Distribution Width 13.6 % (9.3-17.3); White Blood Count 9.7 T/CUMM (4-12)
[2016-07-01] MEDS: KETOROLAC 30 MG/1 ML VIAL IV SCH ×4 (07:20→22:12)
[2016-07-01 07:49] LABS: Albumin 3.5 G/DL (3.4-5.0); Bilirubin,Direct 0.2 MG/DL (0.0-0.20); Bilirubin,Indirect 0.8 MG/DL (0.0-1.0); CKMB % 4.9 %; Calcium 7.5 MG/DL (8.5-10.1); Osmolality,Calculated 290.4 MOS/KG (273-304); Potassium 3.9 MMOL/L (3.5-5.1); Total Protein 5.6 G/DL (6.4-8.3)
[2016-07-01 07:52] LABS: Troponin I Only 23.5 NG/ML (0.00-0.045)
--- NOTE | 2016-07-01 08:55 | XRay Report ---
XR chest 1V portable Indication: Shortness of breath Comparison: 01 July 2016 Findings: The heart and mediastinum are stable in size and configuration with cardiac surgery changes. Right internal jugular catheter is unchanged in position. The pulmonary vascularity is normal in caliber. Left midlung linear densities are stable in appearance. No other lung infiltrates, effusions, pneumothorax or other abnormality is demonstrated. Impression: No significant change. PROCEDURE INTERPRETED AT [facility] DEPARTMENT OF RADIOLOGY Final Report Signed by: Dr. Candido Brooks
[2016-07-01] MEDS: FERROUS SULFATE 325 MG TABLET PO SCH (09:06)
[2016-07-01] MEDS: PANTOPRAZOLE 40 MG TABLET PO SCH (09:07)
[2016-07-01] MEDS: ASPIRIN EC 325 MG TABLET PO SCH (09:07)
[2016-07-01] MEDS: sitaGLIPtin 100 MG TABLET PO SCH (09:07)
[2016-07-01] MEDS: DOCUSATE SODIUM 100 MG CAPSULE PO SCH (09:07)
[2016-07-01] MEDS: URSODIOL 300 MG CAPSULE PO SCH ×2 (09:47→22:10)
[2016-07-01] MEDS: CHLORHEXIDINE 0.12% ORAL RINSE 60 ML BOTTLE SWISH/SPIT SCH ×2 (09:50→22:20)
[2016-07-01] MEDS: SODIUM CHLOR 0.45% KCL 20 MEQ 20 MEQ/1,000 ML BAG IV SCH (09:52)
[2016-07-01] MEDS: CARVEDILOL 6.25 MG TABLET PO SCH ×3 (09:56→16:04)
--- NOTE | 2016-07-01 13:30 | Cardiology Progress Note ---
Grupo Jaeger Vanessa, RN, am scribing for, and in the presence of, Tod De Paz MD 13:24. Assessment and Plan - Time spent with patient Time spent with patient: Greater than 30 minutes (1) S/P CABG x 3 Problem details: 06/29/16: LARA to LAD, SVG to rPDA, SVG to RI Status: Acute Assessment and plan: POD #2 status post coronary artery bypass grafting. He continues to do fairly well hemodynamically. He is having a moderate amount of chest soreness this morning. He is progressing well. Current Visit: Yes (2) CAD (coronary artery disease) Status: Chronic Assessment and plan: Per cardiac cath on 06/25/16, severe aorto-ostial left main disease, diffuse disease of RCA, Cx, and LAD. Patient is now status post coronary artery bypass grafting x 3. Current Visit: Yes (3) Diabetes Status: Chronic Assessment and plan: Continue current plan of care with SSI. Current Visit: Yes Qualifiers: Diabetes mellitus type: type 2 Diabetes mellitus complication status: without complication (4) Dyslipidemia Status: Chronic Assessment and plan: Noted that it does not appear patient had previously been on statin therapy on an outpatient basis. Rosuvastatin 20 mg daily is recommended. Current Visit: Yes (5) Hypertension Status: Chronic Assessment and plan: Blood pressure remains borderline low but with some improvement today. Systolic blood pressure averaging around 105. We will continue to monitor this carefully. Current Visit: Yes Qualifiers: Hypertension type: essential hypertension Qualified Code(s): I10 - Essential (primary) hypertension Cardiology - PN: Subj Interval history: PRIMARY MEDICAL PHYSICIST: DR. ISABEL RENEE Mr. Peraza is a 56 year old male. He is POD #2 status post CABG x [address] Horton. He has done well overnight from a hemodynamic standpoint since transfer from ICU to telemetry yesterday afternoon. Moderate chest wall soreness but no acute chest pain. No dyspnea, palpitation, presyncope, other complaint. Labs reviewed. H/H stable. Cardiac isoenzymes are noted. Electrolytes are within acceptable range. BP remains borderline low, but MAP is greater than 65. Sinus rhythm per tele monitoring without disturbance. Generally from his bypass surgery he is making appropriate progress. He's had no cardiovascular issues of dysrhythmias. Signs are stable. Exam (Progress Note) - Constitutional Vitals: Period Temp Pulse Resp BP Sys/Jackson Pulse Ox Last 24 Hr 97.7 F-100 F 80-91 15-20 90-105/49-69 94-97 Exam: General appearance: Awake and alert. No acute distress. (moderate chest wall soreness) HEENT exam: normal inspection, atraumatic, NG tube in place. He is extubated. Neck exam: normal inspection no JVD. No carotid bruit. Trachea is in midline Respiratory/lungs exam: clear to auscultation bilaterally anteriorly with good air movement. No wheeze, rales, rhonchi, stridor Cardiovascular exam: regular rate and rhythm, no murmur or gallop or rub. No precordial lift. Chest wall exam: Sternal incision is covered with dry/intact dressing. GI/Abdominal exam: normal bowel sounds, soft, nontender. Extremeties/musculoskeletal: Bilaterally post graft donor sites with dressings dry/intact to both lower legs. Neurological exam: alert, oriented X3, no focal deficits Psychiatric exam: Responds appropriately. No anxiety or depression seen. Skin exam: normal color, warm, dry [place], Result/EKG - Labs CBC & BMP: 07/01/16 07:15 07/01/16 07:15 Lab Results: I have reviewed the past 24 hour labs Labs: Laboratory Results - last 24 hr 06/28/16 06/29/16 06/29/16 06:50 15:29 16:50 WBC RBC Hgb Hct MCV MCH MCHC RDW Plt Count MPV Neut % (Auto) Lymph % (Auto) [place] % (Auto) Eos % (Auto) Baso % (Auto) Neut # (Auto) Lymph # (Auto) [place] # (Auto) Eos # (Auto) Baso # (Auto) Immature Gran % Nucleated RBC % Immature Gran # Nucleated RBCs # Sodium Potassium Chloride Carbon Dioxide Anion Gap BUN Creatinine GFR Calculation BUN/Creatinine Ratio Glucose POC Glucose 221 H 164 H Calculated Osmolality Calcium Magnesium Total Bilirubin Direct Bilirubin Indirect Bilirubin AST ALT Alkaline Phosphatase Total Creatine Kinase CK-MB (CK-2) CK and CKMB Interp Troponin I Total Protein Albumin Globulin Albumin/Globulin Ratio Blood Type O POSITIVE Antibody Screen Negative Crossmatch See Detail 06/29/16 06/29/16 06/29/16 17:38 19:27 21:15 WBC RBC Hgb Hct MCV MCH MCHC RDW Plt Count MPV Neut % (Auto) Lymph % (Auto) [place] % (Auto) Eos % (Auto) Baso % (Auto) Neut # (Auto) Lymph # (Auto) [place] # (Auto) Eos # (Auto) Baso # (Auto) Immature Gran % Nucleated RBC % Immature Gran # Nucleated RBCs # Sodium Potassium Chloride Carbon Dioxide Anion Gap BUN Creatinine GFR Calculation BUN/Creatinine Ratio Glucose POC Glucose 148 H 137 H 107 H Calculated Osmolality Calcium Magnesium Total Bilirubin Direct Bilirubin Indirect Bilirubin AST ALT Alkaline Phosphatase Total Creatine Kinase CK-MB (CK-2) CK and CKMB Interp Troponin I Total Protein Albumin Globulin Albumin/Globulin Ratio Blood Type Antibody Screen Crossmatch 06/29/16 06/29/16 06/30/16 22:11 23:06 00:23 WBC RBC Hgb Hct MCV MCH MCHC RDW Plt Count MPV Neut % (Auto) Lymph % (Auto) [place] % (Auto) Eos % (Auto) Baso % (Auto) Neut # (Auto) Lymph # (Auto) [place] # (Auto) Eos # (Auto) Baso # (Auto) Immature Gran % Nucleated RBC % Immature Gran # Nucleated RBCs # Sodium Potassium Chloride Carbon Dioxide Anion Gap BUN Creatinine GFR Calculation BUN/Creatinine Ratio Glucose POC Glucose 129 H 122 H 138 H Calculated Osmolality Calcium Magnesium Total Bilirubin Direct Bilirubin Indirect Bilirubin AST ALT Alkaline Phosphatase Total Creatine Kinase CK-MB (CK-2) CK and CKMB Interp Troponin I Total Protein Albumin Globulin Albumin/Globulin Ratio Blood Type Antibody Screen Crossmatch 06/30/16 06/30/16 06/30/16 01:14 02:03 04:08 WBC RBC Hgb Hct MCV MCH MCHC RDW Plt Count MPV Neut % (Auto) Lymph % (Auto) [place] % (Auto) Eos % (Auto) Baso % (Auto) Neut # (Auto) Lymph # (Auto) [place] # (Auto) Eos # (Auto) Baso # (Auto) Immature Gran % Nucleated RBC % Immature Gran # Nucleated RBCs # Sodium Potassium Chloride Carbon Dioxide Anion Gap BUN Creatinine GFR Calculation BUN/Creatinine Ratio Glucose POC Glucose 124 H 123 H 107 H Calculated Osmolality Calcium Magnesium Total Bilirubin Direct Bilirubin Indirect Bilirubin AST ALT Alkaline Phosphatase Total Creatine Kinase CK-MB (CK-2) CK and CKMB Interp Troponin I Total Protein Albumin Globulin Albumin/Globulin Ratio Blood Type Antibody Screen Crossmatch 04/06/30/16 06/30/16 06:44 07:42 10:35 WBC RBC Hgb Hct MCV MCH MCHC RDW Plt Count MPV Neut % (Auto) Lymph % (Auto) [place] % (Auto) Eos % (Auto) Baso % (Auto) Neut # (Auto) Lymph # (Auto) [place] # (Auto) Eos # (Auto) Baso # (Auto) Immature Gran % Nucleated RBC % Immature Gran # Nucleated RBCs # Sodium Potassium Chloride Carbon Dioxide Anion Gap BUN Creatinine GFR Calculation BUN/Creatinine Ratio Glucose POC Glucose 131 H 131 H 233 H Calculated Osmolality Calcium Magnesium Total Bilirubin Direct Bilirubin Indirect Bilirubin AST ALT Alkaline Phosphatase Total Creatine Kinase CK-MB (CK-2) CK and CKMB Interp Troponin I Total Protein Albumin Globulin Albumin/Globulin Ratio Blood Type Antibody Screen Crossmatch 06/30/16 06/30/16 06/30/16 12:30 12:32 14:52 WBC RBC Hgb Hct MCV MCH MCHC RDW Plt Count MPV Neut % (Auto) Lymph % (Auto) [place] % (Auto) Eos % (Auto) Baso % (Auto) Neut # (Auto) Lymph # (Auto) [place] # (Auto) Eos # (Auto) Baso # (Auto) Immature Gran % Nucleated RBC % Immature Gran # Nucleated RBCs # Sodium Potassium Chloride Carbon Dioxide Anion Gap BUN Creatinine GFR Calculation BUN/Creatinine Ratio Glucose POC Glucose 232 H 291 H Calculated Osmolality Calcium Magnesium Total Bilirubin Direct Bilirubin Indirect Bilirubin AST ALT Alkaline Phosphatase Total Creatine Kinase 1545 H D CK-MB (CK-2) 140.7 H D CK and CKMB Interp 9.1 Troponin I 23.800 H D Total Protein Albumin Globulin Albumin/Globulin Ratio Blood Type Antibody Screen Crossmatch 06/30/16 06/30/16 07/01/16 16:00 20:21 01:17 WBC RBC Hgb Hct MCV MCH MCHC RDW Plt Count MPV Neut % (Auto) Lymph % (Auto) [place] % (Auto) Eos % (Auto) Baso % (Auto) Neut # (Auto) Lymph # (Auto) [place] # (Auto) Eos # (Auto) Baso # (Auto) Immature Gran % Nucleated RBC % Immature Gran # Nucleated RBCs # Sodium Potassium Chloride Carbon Dioxide Anion Gap BUN Creatinine GFR Calculation BUN/Creatinine Ratio Glucose POC Glucose 266 H 161 H 208 H Calculated Osmolality Calcium Magnesium Total Bilirubin Direct Bilirubin Indirect Bilirubin AST ALT Alkaline Phosphatase Total Creatine Kinase CK-MB (CK-2) CK and CKMB Interp Troponin I Total Protein Albumin Globulin Albumin/Globulin Ratio Blood Type Antibody Screen Crossmatch 07/01/16 07/01/16 07/01/16 06:08 07:15 07:15 WBC 9.7 RBC 3.33 L Hgb 9.1 L Hct 28.8 L MCV 86.5 L MCH 27 MCHC 31.6 L RDW 13.6 Plt Count 116 L D MPV 11.4 Neut % (Auto) 85.6 H Lymph % (Auto) 5.0 L [place] % (Auto) 8.5 Eos % (Auto) 0.1 Baso % (Auto) 0.1 Neut # (Auto) 8.3 H Lymph # (Auto) 0.5 L [place] # (Auto) 0.8 Eos # (Auto) 0.0 Baso # (Auto) 0.0 Immature Gran % 0.7 Nucleated RBC % 0.0 Immature Gran # 0.07 Nucleated RBCs # 0.00 Sodium 140 Potassium 3.9 Chloride 106 Carbon Dioxide 27 Anion Gap 10.9 BUN 29 H Creatinine 1.50 H GFR Calculation 65 BUN/Creatinine Ratio 19.00 Glucose 215 H POC Glucose 218 H Calculated Osmolality 290.4 Calcium 7.5 L Magnesium 2.0 Total Bilirubin 1.00 Direct Bilirubin 0.20 Indirect Bilirubin 0.8 AST 95 H ALT 68 H Alkaline Phosphatase 42 L Total Creatine Kinase 960 H D CK-MB (CK-2) 46.9 H D CK and CKMB Interp 4.9 Troponin I 23.500 H Total Protein 5.6 L Albumin 3.5 Globulin 2.1 L Albumin/Globulin Ratio 1.6 Blood Type Antibody Screen Crossmatch 07/01/16 07:37 WBC RBC Hgb Hct MCV MCH MCHC RDW Plt Count MPV Neut % (Auto) Lymph % (Auto) [place] % (Auto) Eos % (Auto) Baso % (Auto) Neut # (Auto) Lymph # (Auto) [place] # (Auto) Eos # (Auto) Baso # (Auto) Immature Gran % Nucleated RBC % Immature Gran # Nucleated RBCs # Sodium Potassium Chloride Carbon Dioxide Anion Gap BUN Creatinine GFR Calculation BUN/Creatinine Ratio Glucose POC Glucose 228 H Calculated Osmolality Calcium Magnesium Total Bilirubin Direct Bilirubin Indirect Bilirubin AST ALT Alkaline Phosphatase Total Creatine Kinase CK-MB (CK-2) CK and CKMB Interp Troponin I Total Protein Albumin Globulin Albumin/Globulin Ratio Blood Type Antibody Screen Crossmatch - Impressions Impressions: Telemetry was sinus rhythm without dysrhythmias. - Diagnostic Findings Procedure: Chest x-ray: image reviewed by me, report reviewed by me (06/30/16: stable left midlung area linear density; no effusion, pneumothorax, or other infiltrate) - EKG EKG results: interpreted by me, no acute changes EKG shows: sinus rhythm (pulse rate 80s) Quality Measures - VTE Contraindication to Pharmacological VTE Prophylaxis: Already on Theraputic Agent , No Prophylaxis Needed Specialty Discharge - Follow Up or Referrals I, Tod De Paz MD, personally performed the services described in this documentation, ascribed by Ana Lombardo RN in my presence, and it is both accurate and complete 330 .
[2016-07-01] MEDS: ATORVASTATIN 40 MG TABLET PO SCH (22:10)
[2016-07-02] MEDS: INSULIN REGULAR 100 UNIT/ML SUBCUT SCH ×5 (02:31→22:16)
[2016-07-02] MEDS: KETOROLAC 30 MG/1 ML VIAL IV SCH ×4 (02:32→22:08)
[2016-07-02 05:07] LABS: Basophils % 0.3 % (0.0-0.8); Eosinophils # 0.2 10*3/uL (0.0-0.87); Eosinophils % 1.9 % (0.00-10.9); Hematocrit 23.9 VOL% (42.0-52.0); Hemoglobin 7.8 GM/DL (14.0-18.0); Immature Granulocytes % 0.6 %; Immature Granulocytes Absolute 0.05 #; Lymphocytes # 0.6 10*3/uL (1.4-4.0); Lymphocytes % 8.3 % (21.2-54.2); Mean Corpuscular HGB Conc 32.6 GM/DL (32-36); Mean Corpuscular Hemoglobin 28 PG (27-34); Mean Corpuscular Volume 84.8 FL (87-102); Mean Platelet Volume 11.1 FL (9.6-12.0); Monocytes # 0.8 10*3/uL (0.11-0.8); Monocytes % 9.8 % (1.7-12.7); Neutrophils # 6.1 10*3/uL (1.4-7.4); Neutrophils % 79.1 % (38.7-73.9); Platelet Count 127 T/CUMM (130-400); Red Blood Count 2.82 MC/CUMM (3.8-5.5); Red Cell Distribution Width 13.2 % (9.3-17.3); White Blood Count 7.8 T/CUMM (4-12)
[2016-07-02 06:00] LABS: Bilirubin,Direct 0.3 MG/DL (0.0-0.20); Bilirubin,Indirect 0.7 MG/DL (0.0-1.0); CKMB % 0.8 %; Calcium 7.5 MG/DL (8.5-10.1); Magnesium 2.3 MG/DL (1.8-2.4); Osmolality,Calculated 286.4 MOS/KG (273-304); Potassium 3.6 MMOL/L (3.5-5.1)
[2016-07-02 06:04] LABS: Troponin I Only 15.1 NG/ML (0.00-0.045)
[2016-07-02] MEDS ORDERED: SODIUM CHLORIDE 0.9% 250 ML IV PRN (06:21)
--- NOTE | 2016-07-02 06:21 | Cardiothoracic Progress Note ---
Cardiothoracic Subjective Interval history: Patient had a comfortable night. Vital signs have been stable and he has been breathing comfortably. On his blood work this morning his hematocrit is 23% so I believe it would be best to transfuse him 2 units of packed red blood cells. Otherwise we will gradually increase his activity according to routine protocol. So far his progress has been satisfactory. Exam (Progress Note) - Constitutional Vitals: Period Temp Pulse Resp BP Sys/Jackson Pulse Ox Last 24 Hr 96.9 F-99.0 F 83-88 16-20 102-112/52-60 93-99 Result/EKG - Labs CBC & BMP: 07/02/16 03:14 07/02/16 03:15 Labs: Laboratory Results - last 24 hr 06/28/16 07/01/16 07/01/16 06:50 07:15 07:15 WBC 9.7 RBC 3.33 L Hgb 9.1 L Hct 28.8 L MCV 86.5 L MCH 27 MCHC 31.6 L RDW 13.6 Plt Count 116 L D MPV 11.4 Neut % (Auto) 85.6 H Lymph % (Auto) 5.0 L [place] % (Auto) 8.5 Eos % (Auto) 0.1 Baso % (Auto) 0.1 Neut # (Auto) 8.3 H Lymph # (Auto) 0.5 L [place] # (Auto) 0.8 Eos # (Auto) 0.0 Baso # (Auto) 0.0 Immature Gran % 0.7 Nucleated RBC % 0.0 Immature Gran # 0.07 Nucleated RBCs # 0.00 Sodium 140 Potassium 3.9 Chloride 106 Carbon Dioxide 27 Anion Gap 10.9 BUN 29 H Creatinine 1.50 H GFR Calculation 65 BUN/Creatinine Ratio 19.00 Glucose 215 H POC Glucose Calculated Osmolality 290.4 Calcium 7.5 L Magnesium 2.0 Total Bilirubin 1.00 Direct Bilirubin 0.20 Indirect Bilirubin 0.8 AST 95 H ALT 68 H Alkaline Phosphatase 42 L Total Creatine Kinase 960 H D CK-MB (CK-2) 46.9 H D CK and CKMB Interp 4.9 Troponin I 23.500 H Total Protein 5.6 L Albumin 3.5 Globulin 2.1 L Albumin/Globulin Ratio 1.6 Blood Type O POSITIVE Antibody Screen Negative Crossmatch See Detail 07/01/16 07/01/16 07/01/16 07:37 12:01 15:18 WBC RBC Hgb Hct MCV MCH MCHC RDW Plt Count MPV Neut % (Auto) Lymph % (Auto) [place] % (Auto) Eos % (Auto) Baso % (Auto) Neut # (Auto) Lymph # (Auto) [place] # (Auto) Eos # (Auto) Baso # (Auto) Immature Gran % Nucleated RBC % Immature Gran # Nucleated RBCs # Sodium Potassium Chloride Carbon Dioxide Anion Gap BUN Creatinine GFR Calculation BUN/Creatinine Ratio Glucose POC Glucose 228 H 175 H 195 H Calculated Osmolality Calcium Magnesium Total Bilirubin Direct Bilirubin Indirect Bilirubin AST ALT Alkaline Phosphatase Total Creatine Kinase CK-MB (CK-2) CK and CKMB Interp Troponin I Total Protein Albumin Globulin Albumin/Globulin Ratio Blood Type Antibody Screen Crossmatch 07/01/16 07/02/16 07/02/16 19:42 01:23 03:14 WBC 7.8 RBC 2.82 L Hgb 7.8 L Hct 23.9 L MCV 84.8 L MCH 28 MCHC 32.6 RDW 13.2 Plt Count 127 L MPV 11.1 Neut % (Auto) 79.1 H Lymph % (Auto) 8.3 L [place] % (Auto) 9.8 Eos % (Auto) 1.9 Baso % (Auto) 0.3 Neut # (Auto) 6.1 Lymph # (Auto) 0.6 L [place] # (Auto) 0.8 Eos # (Auto) 0.2 Baso # (Auto) 0.0 Immature Gran % 0.6 Nucleated RBC % 0.0 Immature Gran # 0.05 Nucleated RBCs # 0.00 Sodium Potassium Chloride Carbon Dioxide Anion Gap BUN Creatinine GFR Calculation BUN/Creatinine Ratio Glucose POC Glucose 188 H 155 H Calculated Osmolality Calcium Magnesium Total Bilirubin Direct Bilirubin Indirect Bilirubin AST ALT Alkaline Phosphatase Total Creatine Kinase CK-MB (CK-2) CK and CKMB Interp Troponin I Total Protein Albumin Globulin Albumin/Globulin Ratio Blood Type Antibody Screen Crossmatch 07/02/16 07/02/16 03:15 04:40 WBC RBC Hgb Hct MCV MCH MCHC RDW Plt Count MPV Neut % (Auto) Lymph % (Auto) [place] % (Auto) Eos % (Auto) Baso % (Auto) Neut # (Auto) Lymph # (Auto) [place] # (Auto) Eos # (Auto) Baso # (Auto) Immature Gran % Nucleated RBC % Immature Gran # Nucleated RBCs # Sodium 140 Potassium 3.6 Chloride 106 Carbon Dioxide 27 Anion Gap 10.6 BUN 29 H Creatinine 1.20 GFR Calculation 85 BUN/Creatinine Ratio 24.00 H Glucose 132 H POC Glucose 158 H Calculated Osmolality 286.4 Calcium 7.5 L Magnesium 2.3 Total Bilirubin 1.00 Direct Bilirubin 0.30 H Indirect Bilirubin 0.7 AST 55 H ALT 49 Alkaline Phosphatase 39 L Total Creatine Kinase 1252 H D CK-MB (CK-2) 9.4 H D CK and CKMB Interp 0.8 Troponin I 15.100 H D Total Protein 5.0 L Albumin 3.0 L Globulin 2.0 L Albumin/Globulin Ratio 1.5 Blood Type Antibody Screen Crossmatch Quality Measures - VTE Contraindication to Pharmacological VTE Prophylaxis: Already on Theraputic Agent , No Prophylaxis Needed Specialty Discharge - Follow Up or Referrals
[2016-07-02] MEDS ORDERED: FUROSEMIDE 40 MG/4 ML VIAL IV ONE (06:26)
[2016-07-02] MEDS: sitaGLIPtin 100 MG TABLET PO SCH (08:41)
[2016-07-02] MEDS: URSODIOL 300 MG CAPSULE PO SCH ×2 (08:41→22:08)
[2016-07-02] MEDS: FERROUS SULFATE 325 MG TABLET PO SCH (08:41)
[2016-07-02] MEDS: PANTOPRAZOLE 40 MG TABLET PO SCH (08:42)
[2016-07-02] MEDS: CARVEDILOL 6.25 MG TABLET PO SCH ×2 (08:42→16:01)
[2016-07-02] MEDS: ASPIRIN EC 325 MG TABLET PO SCH (08:42)
[2016-07-02] MEDS: DOCUSATE SODIUM 100 MG CAPSULE PO SCH (08:42)
[2016-07-02] MEDS: CHLORHEXIDINE 0.12% ORAL RINSE 60 ML BOTTLE SWISH/SPIT SCH ×2 (08:54→22:09)
--- NOTE | 2016-07-02 11:16 | XRay Report ---
XR chest 1V portable Indication: Shortness of breath Comparison: 01 July 2016 Findings: The heart and mediastinum are stable in size and configuration. Right internal jugular catheters unchanged in position. The pulmonary vascularity is normal in caliber. There is increased left midlung density. No other lung infiltrates, effusions, pneumothorax or other abnormality is demonstrated. Impression: No significant changes. PROCEDURE INTERPRETED AT [facility] DEPARTMENT OF RADIOLOGY Final Report Signed by: Dr. Candido Brooks
[2016-07-02] MEDS: LACTULOSE 20 GM/30 ML UDCUP PO PRN (16:00)
[2016-07-02 17:38] LABS: Hematocrit 31.4 VOL% (42.0-52.0); Hemoglobin 10.6 GM/DL (14.0-18.0)
--- NOTE | 2016-07-02 18:43 | Cardiology Progress Note ---
Grpuo Jaeger Vanessa, RN, am scribing for, and in the presence of, Tod De Paz MD 18:42. Assessment and Plan - Time spent with patient Time spent with patient: Greater than 30 minutes (1) S/P CABG x 3 Problem details: 06/29/16: LARA to LAD, SVG to rPDA, SVG to RI Status: Acute Assessment and plan: POD #3 status post coronary artery bypass grafting. He continues to progress fairly well in his postoperative course. Current Visit: Yes (2) CAD (coronary artery disease) Status: Chronic Assessment and plan: Per cardiac cath on 06/25/16, severe aorto-ostial left main disease, diffuse disease of RCA, Cx, and LAD. Patient is now status post coronary artery bypass grafting x 3. Current Visit: Yes (3) Diabetes Status: Chronic Assessment and plan: Continue current plan of care with SSI. Current Visit: Yes Qualifiers: Diabetes mellitus type: type 2 Diabetes mellitus complication status: without complication (4) Dyslipidemia Status: Chronic Assessment and plan: Noted that it does not appear patient had previously been on statin therapy on an outpatient basis. Rosuvastatin 20 mg daily is recommended. Current Visit: Yes (5) Hypertension Status: Chronic Assessment and plan: Blood pressure continues to be borderline low at times but continues to improve with SBP averaging around 115. Current Visit: Yes Qualifiers: Hypertension type: essential hypertension Qualified Code(s): I10 - Essential (primary) hypertension (6) Constipation Status: Acute Assessment and plan: May need an enema she doesn't have the results of the lactulose. Current Visit: Yes Cardiology - PN: Subj Interval history: PRIMARY OTA: DR. ISABEL RENEE Mr. Peraza is a 56 year old who is now POD #3 status post coronary artery bypass grafting x [address] Horton. He continues to progress well both hemodynamically and physically. No dyspnea, and his chest wall soreness is improving. Biggest complaint today is of some mild constipation. Remains in a sinus rhythm with pulse rate 80s, and there has been no occurrence of atrial fibrillation or other arrhythmia. Borderline low BP is improving. Labs reviewed. H/H is 7.8 and 23.9, and he is being transfused with 2 units PRBCs this morning. Cardiac biomarkers are noted. Sodium is 140, potassium is 3.6, magnesium is 2.3. His this complains of constipation is had minimal bowel movements the last several days. He also is having no weeping from his lower extremity surgical size. He has several edema. He was given Lasix today but is has a lot of intake. He may have to have more diuresis tomorrow. If he does not have held a good bowel movement enema may be necessary. Exam (Progress Note) - Constitutional Vitals: Period Temp Pulse Resp BP Sys/Jackson Pulse Ox Last 24 Hr 96.9 F-99.0 F 79-88 16-20 102-123/52-64 93-99 Exam: General appearance: Awake and alert. No acute distress. (moderate chest wall soreness) HEENT exam: normal inspection, atraumatic, NG tube in place. He is extubated. Neck exam: normal inspection no JVD. No carotid bruit. Trachea is in midline Respiratory/lungs exam: clear to auscultation bilaterally anteriorly with good air movement. No wheeze, rales, rhonchi, stridor Cardiovascular exam: regular rate and rhythm, no murmur or gallop or rub. No precordial lift. Chest wall exam: Sternal incision looks good. GI/Abdominal exam: normal bowel sounds, soft, nontender. Extremeties/musculoskeletal: Bilaterally post graft donor sites with some weeping and edema of the lower extremities. Neurological exam: alert, oriented X3, no focal deficits Psychiatric exam: Responds appropriately. No anxiety or depression seen. Skin exam: normal color, warm, dry Result/EKG - Labs CBC & BMP: 07/02/16 17:20 07/02/16 03:15 Lab Results: I have reviewed the past 24 hour labs Labs: Laboratory Results - last 24 hr 07/01/16 07/01/16 07/01/16 12:01 15:18 19:42 WBC RBC Hgb Hct MCV MCH MCHC RDW Plt Count MPV Neut % (Auto) Lymph % (Auto) [place] % (Auto) Eos % (Auto) Baso % (Auto) Neut # (Auto) Lymph # (Auto) [place] # (Auto) Eos # (Auto) Baso # (Auto) Immature Gran % Nucleated RBC % Immature Gran # Nucleated RBCs # Sodium Potassium Chloride Carbon Dioxide Anion Gap BUN Creatinine GFR Calculation BUN/Creatinine Ratio Glucose POC Glucose 175 H 195 H 188 H Calculated Osmolality Calcium Magnesium Total Bilirubin Direct Bilirubin Indirect Bilirubin AST ALT Alkaline Phosphatase Total Creatine Kinase CK-MB (CK-2) CK and CKMB Interp Troponin I Total Protein Albumin Globulin Albumin/Globulin Ratio Blood Type Antibody Screen Crossmatch 07/02/16 07/02/16 07/02/16 01:23 03:14 03:14 WBC 7.8 RBC 2.82 L Hgb 7.8 L Hct 23.9 L MCV 84.8 L MCH 28 MCHC 32.6 RDW 13.2 Plt Count 127 L MPV 11.1 Neut % (Auto) 79.1 H Lymph % (Auto) 8.3 L [place] % (Auto) 9.8 Eos % (Auto) 1.9 Baso % (Auto) 0.3 Neut # (Auto) 6.1 Lymph # (Auto) 0.6 L [place] # (Auto) 0.8 Eos # (Auto) 0.2 Baso # (Auto) 0.0 Immature Gran % 0.6 Nucleated RBC % 0.0 Immature Gran # 0.05 Nucleated RBCs # 0.00 Sodium Potassium Chloride Carbon Dioxide Anion Gap BUN Creatinine GFR Calculation BUN/Creatinine Ratio Glucose POC Glucose 155 H Calculated Osmolality Calcium Magnesium Total Bilirubin Direct Bilirubin Indirect Bilirubin AST ALT Alkaline Phosphatase Total Creatine Kinase CK-MB (CK-2) CK and CKMB Interp Troponin I Total Protein Albumin Globulin Albumin/Globulin Ratio Blood Type O POSITIVE Antibody Screen Negative Crossmatch See Detail 07/02/16 07/02/16 07/02/16 03:15 04:40 07:49 WBC RBC Hgb Hct MCV MCH MCHC RDW Plt Count MPV Neut % (Auto) Lymph % (Auto) [place] % (Auto) Eos % (Auto) Baso % (Auto) Neut # (Auto) Lymph # (Auto) [place] # (Auto) Eos # (Auto) Baso # (Auto) Immature Gran % Nucleated RBC % Immature Gran # Nucleated RBCs # Sodium 140 Potassium 3.6 Chloride 106 Carbon Dioxide 27 Anion Gap 10.6 BUN 29 H Creatinine 1.20 GFR Calculation 85 BUN/Creatinine Ratio 24.00 H Glucose 132 H POC Glucose 158 H 136 H Calculated Osmolality 286.4 Calcium 7.5 L Magnesium 2.3 Total Bilirubin 1.00 Direct Bilirubin 0.30 H Indirect Bilirubin 0.7 AST 55 H ALT 49 Alkaline Phosphatase 39 L Total Creatine Kinase 1252 H D CK-MB (CK-2) 9.4 H D CK and CKMB Interp 0.8 Troponin I 15.100 H D Total Protein 5.0 L Albumin 3.0 L Globulin 2.0 L Albumin/Globulin Ratio 1.5 Blood Type Antibody Screen Crossmatch - Impressions Impressions: Telemetry with sinus rhythm and no dysrhythmias. - EKG EKG results: interpreted by me, no acute changes EKG shows: sinus rhythm Quality Measures - VTE Contraindication to Pharmacological VTE Prophylaxis: Already on Theraputic Agent , No Prophylaxis Needed Specialty Discharge - Follow Up or Referrals I, Tod De Paz MD, personally performed the services described in this documentation, ascribed by Ana Lombardo RN in my presence, and it is both accurate and complete [id number] .
[2016-07-02] MEDS: ATORVASTATIN 40 MG TABLET PO SCH (22:08)
[2016-07-03] MEDS: KETOROLAC 30 MG/1 ML VIAL IV SCH (03:16)
[2016-07-03] MEDS: LACTULOSE 20 GM/30 ML UDCUP PO PRN (05:40)
--- NOTE | 2016-07-03 06:10 | Cardiothoracic Progress Note ---
Cardiothoracic Subjective Interval history: Patient had a fairly comfortable night. Vital signs have been stable and he has been breathing comfortably. Hematocrit was 31% after 2 units of packed red blood cells. We will continue to increase his activity according to routine postoperative protocol. Exam (Progress Note) - Constitutional Vitals: Period Temp Pulse Resp BP Sys/Jackson Pulse Ox Last 24 Hr 7.9 F-98.9 F 76-88 18-20 96-123/51-68 94-98 Result/EKG - Labs CBC & BMP: 07/02/16 17:20 07/02/16 03:15 Labs: Laboratory Results - last 24 hr 07/02/16 07/02/16 07/02/16 03:14 07:49 11:47 Hgb Hct POC Glucose 136 H 290 H Blood Type O POSITIVE Antibody Screen Negative Crossmatch See Detail 07/02/16 07/02/16 07/02/16 16:07 17:20 20:52 Hgb 10.6 L D Hct 31.4 L POC Glucose 206 H 225 H Blood Type Antibody Screen Crossmatch 07/02/16 22:14 Hgb Hct POC Glucose 208 H Blood Type Antibody Screen Crossmatch Quality Measures - VTE Contraindication to Pharmacological VTE Prophylaxis: Already on Theraputic Agent , No Prophylaxis Needed Specialty Discharge - Follow Up or Referrals
[2016-07-03 07:14] LABS: Calcium 7.6 MG/DL (8.5-10.1); Magnesium 2.4 MG/DL (1.8-2.4); Potassium 3.7 MMOL/L (3.5-5.1)
[2016-07-03] MEDS: FERROUS SULFATE 325 MG TABLET PO SCH (09:50)
[2016-07-03] MEDS: CHLORHEXIDINE 0.12% ORAL RINSE 60 ML BOTTLE SWISH/SPIT SCH ×2 (09:50→21:27)
[2016-07-03] MEDS: CARVEDILOL 6.25 MG TABLET PO SCH ×2 (09:50→18:03)
[2016-07-03] MEDS: sitaGLIPtin 100 MG TABLET PO SCH (09:51)
[2016-07-03] MEDS: INSULIN REGULAR 100 UNIT/ML SUBCUT SCH ×4 (09:53→22:18)
[2016-07-03] MEDS: DOCUSATE SODIUM 100 MG CAPSULE PO SCH (09:53)
[2016-07-03] MEDS: URSODIOL 300 MG CAPSULE PO SCH ×2 (09:53→21:27)
[2016-07-03] MEDS: PANTOPRAZOLE 40 MG TABLET PO SCH (09:53)
[2016-07-03] MEDS: ASPIRIN EC 325 MG TABLET PO SCH (09:53)
[2016-07-03] MEDS ORDERED: SODIUM PHOSPHATE ENEMA 133 ML BOTTLE RECTAL ONE (11:04)
--- NOTE | 2016-07-03 12:14 | Cardiology Progress Note ---
<Barbara Tom E - Last Filed: 07/03/16 12:00> Assessment and Plan - Time spent with patient Time spent with patient: Less than 30 minutes (1) S/P CABG x 3 Problem details: 06/29/16: LARA to LAD, SVG to rPDA, SVG to RI Status: Acute Assessment and plan: POD #4 status post coronary artery bypass grafting. He continues to progress fairly well in his postoperative course. Current Visit: Yes (2) CAD (coronary artery disease) Status: Chronic Assessment and plan: Per cardiac cath on 06/25/16, severe aorto-ostial left main disease, diffuse disease of RCA, Cx, and LAD. Patient is now status post coronary artery bypass grafting x 3. Current Visit: Yes (3) Constipation Status: Acute Assessment and plan: No results from lactulose, colace, milk of magnesia. Enema ordered for today. Current Visit: Yes (4) Dyslipidemia Status: Chronic Assessment and plan: Noted that it does not appear patient had previously been on statin therapy on an outpatient basis. Has been started on Lipitor 80mg PO QHS. Current Visit: Yes (5) Hypertension Status: Chronic Assessment and plan: Blood pressure much improved today with SBP averaging between 120-140. Current Visit: Yes Qualifiers: Hypertension type: essential hypertension Qualified Code(s): I10 - Essential (primary) hypertension (6) Diabetes Status: Chronic Assessment and plan: Continue current plan of care with SSI. Current Visit: Yes Qualifiers: Diabetes mellitus type: type 2 Diabetes mellitus complication status: without complication Cardiology - PN: Subj Interval history: PRIMARY PRODUCER DIRECTOR: DR. ISABEL RENEE Mr. Peraza is a 56 year old who is now POD #4 status post coronary artery bypass grafting x [address] Horotn. He continues to progress well both hemodynamically and physically. No dyspnea, and his chest wall soreness is improving. Biggest complaint today is of some mild constipation. He has been taking Lactulose, Milk of Magnesia, and colace with no results. He is to receive an enema today. Labs reviewed. He required blood transfusion last night for H&H 7.8 and 23.9. This improved to 10.6 and 31.4 after transfusion. Potassium 3.7, creatinine 1.2, magnesium 2.4. Vital signs are stable. He continues to have some moderate lower extremity edema. He was given Lasix yesterday but continues to have a significant amount of intake. Midsternal chest incision is well approximated, no redness, edema, or drainage. Lower extremity surgical wound looks good, no bleeding, redness, dressing dry and intact. Exam (Progress Note) - Constitutional Vitals: Period Temp Pulse Resp BP Sys/Jackson Pulse Ox Last 24 Hr 97.4 F-98.9 F 75-88 18-20 97-142/52-75 94-97 Exam: General appearance: Awake and alert. No acute distress. (moderate chest wall soreness) HEENT exam: normal inspection, atraumatic, NG tube in place. He is extubated. Neck exam: normal inspection no JVD. No carotid bruit. Trachea is in midline Respiratory/lungs exam: clear to auscultation bilaterally anteriorly with good air movement. No wheeze, rales, rhonchi, stridor Cardiovascular exam: regular rate and rhythm, no murmur or gallop or rub. No precordial lift. Chest wall exam: Sternal incision looks good. GI/Abdominal exam: normal bowel sounds, soft, nontender. Extremeties/musculoskeletal: Bilaterally post graft donor sites with some weeping and edema of the lower extremities. Neurological exam: alert, oriented X3, no focal deficits Psychiatric exam: Responds appropriately. No anxiety or depression seen. Skin exam: normal color, warm, dry Result/EKG - Labs CBC & BMP: 07/02/16 17:20 07/03/16 05:28 Lab Results: I have reviewed the past 24 hour labs Labs: Laboratory Results - last 24 hr 07/02/16 07/02/16 07/02/16 03:14 11:47 16:07 Hgb Hct Sodium Potassium Chloride Carbon Dioxide Anion Gap BUN Creatinine GFR Calculation BUN/Creatinine Ratio Glucose POC Glucose 290 H 206 H Calculated Osmolality Calcium Magnesium Blood Type O POSITIVE Antibody Screen Negative Crossmatch See Detail 07/02/16 07/02/16 07/02/16 17:20 20:52 22:14 Hgb 10.6 L D Hct 31.4 L Sodium Potassium Chloride Carbon Dioxide Anion Gap BUN Creatinine GFR Calculation BUN/Creatinine Ratio Glucose POC Glucose 225 H 208 H Calculated Osmolality Calcium Magnesium Blood Type Antibody Screen Crossmatch 07/03/16 07/03/16 07/03/16 05:28 07:27 11:14 Hgb Hct Sodium 143 Potassium 3.7 Chloride 107 Carbon Dioxide 28 Anion Gap 11.7 BUN 30 H Creatinine 1.20 GFR Calculation 87 BUN/Creatinine Ratio 25.00 H Glucose 135 H POC Glucose 171 H 157 H Calculated Osmolality 292.0 Calcium 7.6 L Magnesium 2.4 Blood Type Antibody Screen Crossmatch - EKG EKG results: interpreted by me Quality Measures - VTE Contraindication to Pharmacological VTE Prophylaxis: Already on Theraputic Agent , No Prophylaxis Needed Specialty Discharge - Follow Up or Referrals <Tod De Paz - Last Filed: 07/03/16 16:15> Assessment and Plan (1) S/P CABG x 3 Problem details: 06/29/16: LARA to LAD, SVG to rPDA, SVG to RI Status: Acute Current Visit: Yes (2) CAD (coronary artery disease) Status: Chronic Current Visit: Yes (3) Diabetes Status: Chronic Current Visit: Yes Qualifiers: Diabetes mellitus type: type 2 Diabetes mellitus complication status: without complication (4) Dyslipidemia Status: Chronic Current Visit: Yes (5) Hypertension Status: Chronic Current Visit: Yes Qualifiers: Hypertension type: essential hypertension Qualified Code(s): I10 - Essential (primary) hypertension (6) Constipation Status: Acute Current Visit: Yes Cardiology - PN: Subj Interval history: Patient personally interviewed and examined and chart reviewed. Have discussed the case with Barbara Tom SHOW HORSE DRIVER. Agree with history as well as examination and assessment. In addition a summation the patient is really doing generally pretty well post surgery. He is still having some edema little weeping from his graft sites. Also he still has had a good bowel movement even with an enema. I think it is far as constipation Max citrate may be our next step if he does not have a bowel movement. He is going to try some V8 juice. His heart rhythm remained sinus. Vital signs are stable. Exam stable. If the patient does not have a bowel movement I think the magnesium citrate would be a consideration. Also if his stays in positive fluid balance and continued edema Lasix will be appropriate tomorrow. Exam (Progress Note) - Constitutional Vitals: Period Temp Pulse Resp BP Sys/Jackson Pulse Ox Last 24 Hr 97.4 F-98.3 F 74-84 18-20 106-145/60-75 94-97 Result/EKG - Labs CBC & BMP: 07/02/16 17:20 07/03/16 05:28 Labs: Laboratory Results - last 24 hr 07/02/16 07/02/16 07/02/16 03:14 17:20 20:52 Hgb 10.6 L D Hct 31.4 L Sodium Potassium Chloride Carbon Dioxide Anion Gap BUN Creatinine GFR Calculation BUN/Creatinine Ratio Glucose POC Glucose 225 H Calculated Osmolality Calcium Magnesium Blood Type O POSITIVE Antibody Screen Negative Crossmatch See Detail 07/02/16 07/03/16 07/03/16 22:14 05:28 07:27 Hgb Hct Sodium 143 Potassium 3.7 Chloride 107 Carbon Dioxide 28 Anion Gap 11.7 BUN 30 H Creatinine 1.20 GFR Calculation 87 BUN/Creatinine Ratio 25.00 H Glucose 135 H POC Glucose 208 H 171 H Calculated Osmolality 292.0 Calcium 7.6 L Magnesium 2.4 Blood Type Antibody Screen Crossmatch 07/03/16 11:14 Hgb Hct Sodium Potassium Chloride Carbon Dioxide Anion Gap BUN Creatinine GFR Calculation BUN/Creatinine Ratio Glucose POC Glucose 157 H Calculated Osmolality Calcium Magnesium Blood Type Antibody Screen Crossmatch
[2016-07-03] MEDS ORDERED: BISACODYL 10 MG SUPP RECTAL ONE (14:10)
[2016-07-03] MEDS: ATORVASTATIN 40 MG TABLET PO SCH (21:27)
[2016-07-04 06:23] LABS: Basophils % 0.1 % (0.0-0.8); Eosinophils % 0.3 % (0.00-10.9); Hematocrit 30.6 VOL% (42.0-52.0); Hemoglobin 10.1 GM/DL (14.0-18.0); Immature Granulocytes % 0.4 %; Immature Granulocytes Absolute 0.03 #; Lymphocytes # 0.7 10*3/uL (1.4-4.0); Lymphocytes % 8.8 % (21.2-54.2); Mean Corpuscular Hemoglobin 28 PG (27-34); Mean Corpuscular Volume 83.8 FL (87-102); Mean Platelet Volume 10.1 FL (9.6-12.0); Monocytes # 0.7 10*3/uL (0.11-0.8); Monocytes % 8.9 % (1.7-12.7); Neutrophils # 6.2 10*3/uL (1.4-7.4); Neutrophils % 81.5 % (38.7-73.9); Platelet Count 252 T/CUMM (130-400); Red Blood Count 3.65 MC/CUMM (3.8-5.5); White Blood Count 7.6 T/CUMM (4-12)
[2016-07-04 06:47] LABS: Alanine Aminotransferase 72 U/L (16-61); Albumin 2.9 G/DL (3.4-5.0); Alkaline Phosphatase 78 U/L (45-117); Aspartate Amino Transferase 35 U/L (0-37); Blood Urea Nitrogen 19 MG/DL (7-18); Calcium 8.3 MG/DL (8.5-10.1); Glucose 154 MG/DL (74-106); Magnesium 2.4 MG/DL (1.8-2.4); Osmolality,Calculated 290.8 MOS/KG (273-304); Potassium 4.2 MMOL/L (3.5-5.1); Sodium 144 MMOL/L (136-145); Total Protein 5.6 G/DL (6.4-8.3)
[2016-07-04 08:56] VITALS: BP 154/81
--- NOTE | 2016-07-04 08:58 | Discharge Summary ---
Hospital Course - Hospital Course Hospital Course: History of present illness: Patient is a 56-year-old man who presented with symptoms of increasing substernal chest discomfort. He was advised to have cardiac catheterization which revealed critical three-vessel coronary disease and the patient was recommended for coronary artery bypass surgery. Past medical history review of systems social history and family history are documented in his admission note. Hospital course: Patient was taken to surgery and three-vessel bypass grafting was carried out without incident. Patient's postoperative course was entirely uncomplicated and he was discharged home on the fifth postoperative day. Discharge medications are listed below and the patient has been asked to return for follow-up in 1 month. Specialty Discharge - Follow Up or Referrals Discharge Plan - Discharge Medications No Action Nitroglycerin Sl Tab [Nitrostat] 0.4 mg SL Q5M PRN PRN Reason: Chest Pain Ursodiol [Actigall] 300 mg PO BID Saxagliptin HCl [Onglyza] 5 mg PO DAILY metFORMIN [Glucophage] 500 mg PO BID W/MEALS Aspirin EC Tab 81 mg PO DAILY Carvedilol [Coreg] 6.25 mg PO BID - Follow Up or Referral - Forms/Instructions Instructions: Coronary Artery Bypass Graft (DC), Heart Healthy Diet (GEN), Sternal Precautions (GEN) Exam - Constitutional Vitals: Period Temp Pulse Resp BP Sys/Jackson Pulse Ox Last 24 Hr 97.5 F-97.9 F 72-79 18-22 129-154/69-81 96-98 Discharge Results Procedures and tests throughout hospitalization: Pending Orders 06/28/16 06:50 Fresh Frozen Plasma Routine Red Blood Cells Leuko Red Routine Single Donor Platelets Routine Type and Screen Routine 07/04/16 04:00 XR chest 2V IN AM 07/05/16 04:00 XR chest 2V IN AM BMP w/ Mg [Basic Metabolic Panel w/Mg] IN AM Bilirubin Profile Adult IN AM Comp Blood Count Auto Diff IN AM Comprehensive Metabolic Panel IN AM Hepatic (Liver) Panel IN AM Magnesium IN AM Troponin,CKMB & Ck Total IN AM 07/06/16 04:00 BMP w/ Mg [Basic Metabolic Panel w/Mg] IN AM Labs on day of discharge: Labs from last 24 hours 07/04/16 07/04/16 07/04/16 07:57 06:17 06:17 WBC 7.6 RBC 3.65 L D Hgb 10.1 L Hct 30.6 L MCV 83.8 L MCH 28 MCHC 33.0 RDW 13.0 Plt Count 252 D MPV 10.1 Neut % (Auto) 81.5 H Lymph % (Auto) 8.8 L Perry % (Auto) 8.9 Eos % (Auto) 0.3 Baso % (Auto) 0.1 Neut # (Auto) 6.2 Lymph # (Auto) 0.7 L Perry # (Auto) 0.7 Eos # (Auto) 0.0 Baso # (Auto) 0.0 Immature Gran % 0.4 Nucleated RBC % 0.0 Immature Gran # 0.03 Nucleated RBCs # 0.00 Sodium 144 Potassium 4.2 Chloride 110 H Carbon Dioxide 26 Anion Gap 12.2 BUN 19 H Creatinine 1.00 GFR Calculation 109 BUN/Creatinine Ratio 19.00 Glucose 154 H POC Glucose 148 H Calculated Osmolality 290.8 Calcium 8.3 L Magnesium 2.4 Total Bilirubin 1.30 H Direct Bilirubin 0.30 H Indirect Bilirubin 1.0 AST 35 ALT 72 H Alkaline Phosphatase 78 Total Creatine Kinase 504 H D CK-MB (CK-2) 1.5 D Troponin I 4.860 H D Total Protein 5.6 L Albumin 2.9 L Globulin 2.7 Albumin/Globulin Ratio 1.0 L 07/03/16 07/03/16 07/03/16 20:35 16:12 11:14 WBC RBC Hgb Hct MCV MCH MCHC RDW Plt Count MPV Neut % (Auto) Lymph % (Auto) Perry % (Auto) Eos % (Auto) Baso % (Auto) Neut # (Auto) Lymph # (Auto) Perry # (Auto) Eos # (Auto) Baso # (Auto) Immature Gran % Nucleated RBC % Immature Gran # Nucleated RBCs # Sodium Potassium Chloride Carbon Dioxide Anion Gap BUN Creatinine GFR Calculation BUN/Creatinine Ratio Glucose POC Glucose 211 H 186 H 157 H Calculated Osmolality Calcium Magnesium Total Bilirubin Direct Bilirubin Indirect Bilirubin AST ALT Alkaline Phosphatase Total Creatine Kinase CK-MB (CK-2) Troponin I Total Protein Albumin Globulin Albumin/Globulin Ratio DS: Provider Date of admission: 06/25/16 08:48 Primary care physician: Zaheer Krueger MD Attending physician on admission: Jessica Lyles DO Consults: 06/26/16 06:44 Consult to Dietitian [CONS] Routine Reason for Dietitian: Other Consult Comment: low salt, low cholesterol, diet 06/30/16 09:01 Consult to Cardiac Rehabilitation [CONS] Routine Reason for Cardiac Rehabilitation: Other Consult Comment: Post CABG/heart surgery Consult to Diabetes Center, Educator [CONS] Routine Reason for Research Home Economist: Diabetes Education Initial Insulin Education Consult Comment: insulin education Consult to Dietitian [CONS] Routine Reason for Dietitian: Dietary Consult Consult Comment: Cardiac, low salt, low cholesterol diet Consult to Physical Therapy [CONS] Routine Reason for Physical Therapy: Other Consult Comment: CV Rehab Discharging clinician: Keith Horton MD Expected date of discharge: 07/04/16
[2016-07-04] MEDS: INSULIN REGULAR 100 UNIT/ML SUBCUT SCH (09:01)
--- NOTE | 2016-07-04 09:02 | Discharge Summary ---
Specialty Discharge - Follow Up or Referrals Follow up with: Keith Horton MD [Physician] - 1 Month Discharge Plan - Discharge Data Disposition: Disch To Home/Self Care Condition at Discharge: Stable Discharge Diet: advance to your usual diet Activity: resume usual activities as tolerated Hygiene: no restrictions Weight Bearing at Discharge: full weight bearing Driving: not for (10 days) - Discharge Medications New Atorvastatin [Lipitor] 80 mg PO BEDTIME 30 Days Ursodiol [Actigall] 300 mg PO BID capsule sitaGLIPtin [Januvia] 100 mg PO DAILY tablet Continue Nitroglycerin Sl Tab [Nitrostat] 0.4 mg SL Q5M PRN PRN Reason: Chest Pain Ursodiol [Actigall] 300 mg PO BID Saxagliptin HCl [Onglyza] 5 mg PO DAILY metFORMIN [Glucophage] 500 mg PO BID W/MEALS Aspirin EC Tab 81 mg PO DAILY Carvedilol [Coreg] 6.25 mg PO BID - Follow Up or Referral - Forms/Instructions Instructions: Coronary Artery Bypass Graft (DC), Heart Healthy Diet (GEN), Sternal Precautions (GEN) Exam - Constitutional Vitals: Period Temp Pulse Resp BP Sys/Jackson Pulse Ox Last 24 Hr 97.5 F-97.9 F 72-79 18-22 129-154/69-81 96-98 Discharge Results Procedures and tests throughout hospitalization: Pending Orders 06/28/16 06:50 Fresh Frozen Plasma Routine Red Blood Cells Leuko Red Routine Single Donor Platelets Routine Type and Screen Routine 07/04/16 04:00 XR chest 2V IN AM 07/05/16 04:00 XR chest 2V IN AM BMP w/ Mg [Basic Metabolic Panel w/Mg] IN AM Bilirubin Profile Adult IN AM Comp Blood Count Auto Diff IN AM Comprehensive Metabolic Panel IN AM Hepatic (Liver) Panel IN AM Magnesium IN AM Troponin,CKMB & Ck Total IN AM 07/06/16 04:00 BMP w/ Mg [Basic Metabolic Panel w/Mg] IN AM Labs on day of discharge: Labs from last 24 hours 07/04/16 07/04/16 07/04/16 07:57 06:17 06:17 WBC 7.6 RBC 3.65 L D Hgb 10.1 L Hct 30.6 L MCV 83.8 L MCH 28 MCHC 33.0 RDW 13.0 Plt Count 252 D MPV 10.1 Neut % (Auto) 81.5 H Lymph % (Auto) 8.8 L Merrick % (Auto) 8.9 Eos % (Auto) 0.3 Baso % (Auto) 0.1 Neut # (Auto) 6.2 Lymph # (Auto) 0.7 L Merrick # (Auto) 0.7 Eos # (Auto) 0.0 Baso # (Auto) 0.0 Immature Gran % 0.4 Nucleated RBC % 0.0 Immature Gran # 0.03 Nucleated RBCs # 0.00 Sodium 144 Potassium 4.2 Chloride 110 H Carbon Dioxide 26 Anion Gap 12.2 BUN 19 H Creatinine 1.00 GFR Calculation 109 BUN/Creatinine Ratio 19.00 Glucose 154 H POC Glucose 148 H Calculated Osmolality 290.8 Calcium 8.3 L Magnesium 2.4 Total Bilirubin 1.30 H Direct Bilirubin 0.30 H Indirect Bilirubin 1.0 AST 35 ALT 72 H Alkaline Phosphatase 78 Total Creatine Kinase 504 H D CK-MB (CK-2) 1.5 D Troponin I 4.860 H D Total Protein 5.6 L Albumin 2.9 L Globulin 2.7 Albumin/Globulin Ratio 1.0 L 07/03/16 07/03/16 07/03/16 20:35 16:12 11:14 WBC RBC Hgb Hct MCV MCH MCHC RDW Plt Count MPV Neut % (Auto) Lymph % (Auto) Merrick % (Auto) Eos % (Auto) Baso % (Auto) Neut # (Auto) Lymph # (Auto) Merrick # (Auto) Eos # (Auto) Baso # (Auto) Immature Gran % Nucleated RBC % Immature Gran # Nucleated RBCs # Sodium Potassium Chloride Carbon Dioxide Anion Gap BUN Creatinine GFR Calculation BUN/Creatinine Ratio Glucose POC Glucose 211 H 186 H 157 H Calculated Osmolality Calcium Magnesium Total Bilirubin Direct Bilirubin Indirect Bilirubin AST ALT Alkaline Phosphatase Total Creatine Kinase CK-MB (CK-2) Troponin I Total Protein Albumin Globulin Albumin/Globulin Ratio DS: Provider Date of admission: 06/25/16 08:48 Primary care physician: Zaheer Krueger MD Attending physician on admission: Jessica Lyles DO Consults: 06/26/16 06:44 Consult to Dietitian [CONS] Routine Reason for Dietitian: Other Consult Comment: low salt, low cholesterol, diet 06/30/16 09:01 Consult to Cardiac Rehabilitation [CONS] Routine Reason for Cardiac Rehabilitation: Other Consult Comment: Post CABG/heart surgery Consult to Diabetes Center, Educator [CONS] Routine Reason for County Assessor: Diabetes Education Initial Insulin Education Consult Comment: insulin education Consult to Dietitian [CONS] Routine Reason for Dietitian: Dietary Consult Consult Comment: Cardiac, low salt, low cholesterol diet Consult to Physical Therapy [CONS] Routine Reason for Physical Therapy: Other Consult Comment: CV Rehab Discharging clinician: Keith Horton MD
[2016-07-04] MEDS: CARVEDILOL 6.25 MG TABLET PO SCH (09:05)
[2016-07-04] MEDS: ASPIRIN EC 325 MG TABLET PO SCH (09:06)
[2016-07-04] MEDS: FERROUS SULFATE 325 MG TABLET PO SCH (09:06)
[2016-07-04] MEDS: URSODIOL 300 MG CAPSULE PO SCH (09:06)
[2016-07-04] MEDS: DOCUSATE SODIUM 100 MG CAPSULE PO SCH (09:06)
[2016-07-04] MEDS: sitaGLIPtin 100 MG TABLET PO SCH (09:06)
[2016-07-04] MEDS: PANTOPRAZOLE 40 MG TABLET PO SCH (09:07)
--- NOTE | 2016-07-04 13:11 | XRay Report ---
History: Shortness of breath Date: 07/04/2016 Study: Chest x-ray PA and lateral Comparison exam: July 02, 2016 The right IJ central line is well positioned. There is stable mild cardiomegaly. The mediastinum contours are unchanged in this patient status post prior median sternotomy. The pulmonary vasculature is not engorged. There is platelike atelectasis in the lower lungs bilaterally. These changes are improved on the left. There is some mild bilateral pleural effusion, likely unchanged. There is no pneumothorax. There is no new or worsening process. Osseous structures are similar. Impression: Persistent mild bibasilar atelectasis and mild pleural effusion. Interval improved aeration of the left lung base. No adverse interval changes PROCEDURE INTERPRETED AT [facility] DEPARTMENT OF RADIOLOGY Final Report Signed by: Dr. Juani Wu
== END 2016-07-04 10:45 | disposition home or self-care (01) | DRG 234 ==
LOC: N.CL 06:39 → N.TELES 08:48 → N.CVR 06-29 11:34 → N.TELES 06-30 14:07
PROVIDERS: ADMIT Internal Medicine Cardiovascular Disease; ATTEND Internal Medicine Cardiovascular Disease